=== PATIENT | female | born 1995 | race Asian ===

== ENCOUNTER 2021-04-28 02:30 | Outpatient (CLI) | payer OTHER, SELFPAY ==
[2021-04-28 14:26] LABS: Kit/Specimen SENT
[2021-04-28 14:40] LABS: Abs Immature Grans 0.04 10^3/uL (0.0-0.06); Absolute Basophil Count 0.06 10^3/uL (0.0-0.2); Absolute Eosinophil Count 0.11 10^3/uL (0.0-0.7); Basophils % 0.5; Eosinophils % 0.9; HCT 39.6 % (36.0-46.0); HGB 12.9 g/dL (11.2-15.7); Immature Grans % 0.3; MCH 27.5 pg (27.0-33.0); MCHC 32.6 % (32.0-36.0); MCV 84.4 fL (80-95); MPV 8.7 fL (8.0-11.0); Monocytes % 5.1; Neutrophils % 72.2; Nucleated RBC 0 %; Platelet Count 358 10^3/uL (130-400); RBC 4.69 10^6/uL (3.93-5.22); RDW 12.6 % (11.7-14.6); WBC 11.69 10^3/uL (4.4-10.8)
[2021-04-28 14:41] LABS: Absolute Lymphocyte Count 2.45 10^3/uL (1.2-3.4); Absolute Neutrophil Count 8.44 10^3/uL (1.2-6.7)
[2021-04-28 14:46] LABS: Glucose,1 Hr (Glucola) 131 mg/dL (80-140)
[2021-04-28 16:42] LABS: *AMPHETAMINES SCREEN URINE Negative (Negative); *BARBITURATES SCREEN URINE Negative (Negative); *BENZODIAZEPINES SCREEN URINE Negative (Negative); Cannabinoids THC Negative (Negative); Cocaine Screen,Urine Negative (Negative); METHADONE URINE SCREEN Negative (Negative); OPIATES URINE SCREEN Negative (Negative)
[2021-04-28 16:53] LABS: Tricyclic Antidepressants Negative (Negative)
[2021-04-29 08:54] LABS: Hepatitis B Surface Ag Negative (Negative)
[2021-04-29 09:33] LABS: HIV-1/2 Ag & Ab Screen Negative (Negative)
[2021-04-29 09:47] LABS: Hepatitis C Ab w Rflx HCV PCR Negative (Negative)
[2021-04-29 11:06] LABS: Varicella IgG Antibody Positive (See Note)
[2021-04-29 11:10] LABS: Rubella IgG Ab (UVM) Positive (See Note)
[2021-04-30 00:21] LABS: Syphilis IgG w/Reflex Nonreactive (Nonreactive)
[2021-05-03 18:03] LABS: Result Summary NEGATIVE; Specimen WB Whole Blood
[2021-05-04 23:50] LABS: Specimen WB Whole Blood
[2021-05-06 08:56] LABS: Buprenorphine Negative ng/mL (Cutoff: 5.0); Norbuprenorphine Negative ng/mL (Cutoff: 2.5)
== END 2021-04-28 02:31 | disposition home or self-care (01) ==
PROVIDERS: PCP Internal Medicine; Visit Provider Advanced Practice Midwife
DX: Z34.91 Encounter for supervision of normal pregnancy, unspecified, first trimester (principal)
CPT/HCPCS: 36415; 80307; 81329; 82950; 86787; 86803; 86850; 86900; 86901; 87340; 87389; 87491; 87591; 81220; 85025; 86762; 86780; 87086

== ENCOUNTER 2021-05-26 02:42 | Outpatient (CLI) | payer OTHER, SELFPAY ==
[2021-05-26 12:00] LABS: Kit/Specimen SENT
[2021-05-27 13:46] LABS: Chlamydia Result Negative (Negative); GC Result Negative (Negative)
[2021-05-28 11:18] LABS: AFP 26.3 ng/mL; Calculated age at EDD 28 years; Cigarette smoking status non-Smoker; GA used in risk estimate Scan estimate; IVF Pregnancy Yes; Initial or repeat testing Initial testing; Insulin dependent diabetes No; Maternal Weight 229 lbs; Number of Fetuses 1; Physician Phone Number 802-748-7300; Prev Pregnancy w/NTD No; RECOMMENDED FOLLOW UP None.; Results Summary Normal risk
== END 2021-05-26 02:43 | disposition home or self-care (01) ==
LOC: LBO 02:42
PROVIDERS: PCP Internal Medicine; Visit Provider Advanced Practice Midwife
DX: Z34.91 Encounter for supervision of normal pregnancy, unspecified, first trimester
CPT/HCPCS: 36415; 87491; 87591; 82105

== ENCOUNTER 2021-08-18 03:36 | Outpatient (CLI) | payer OTHER, SELFPAY ==
[2021-08-18 11:06] LABS: HCT 38.4 % (36.0-46.0); HGB 12.7 g/dL (11.2-15.7); MCH 28.3 pg (27.0-33.0); MCHC 33.1 % (32.0-36.0); MCV 86 fL (80-95); MPV 8.4 fL (8.0-11.0); Platelet Count 308 10^3/uL (130-400); RBC 4.48 10^6/uL (3.93-5.22); RDW 12.6 % (11.7-14.6); RDW-SD 39.1 fL; WBC 12.51 10^3/uL (4.4-10.8)
[2021-08-18 11:35] LABS: Glucose,1 Hr (Glucola) 140 mg/dL (80-140)
== END 2021-08-18 03:37 | disposition home or self-care (01) ==
LOC: LBO 03:36
PROVIDERS: Advanced Practice Midwife; PCP Internal Medicine; Visit Provider Advanced Practice Midwife
DX: Z34.93 Encounter for supervision of normal pregnancy, unspecified, third trimester (principal); Z3A.28 28 weeks gestation of pregnancy
CPT/HCPCS: 36415; 82950; 85027

== ENCOUNTER 2021-09-09 02:18 | Outpatient (CLI) | payer OTHER, SELFPAY ==
[2021-09-09 10:21] LABS: Glucose 1 Hour 212 mg/dL
[2021-09-09 12:16] LABS: Glucose 3 Hour 153 mg/dL
--- NOTE | 2021-09-10 12:12 | W.DIABETESNO ---
Date of service: 09/10/21 Time of Service: 12:12 Diabetes Note Reason for Visit: gdm NOTE: Spoke to Dionna on phone today and reviewed nutrition basics for gestational diabetes mangement. Overall, Dionna eats a very healthful diet with no excess sugar. Weight gain appropriate. Started testing her blood sugars this AM, fasting today was 92 mg/dl. Emailed information on glycemic targets and meal plans. Will follow in office when available or per email/phone. Time Spent in Nutritional Counseling and Treatment: 20
== END 2021-09-09 02:19 | disposition home or self-care (01) ==
PROVIDERS: PCP Internal Medicine; Visit Provider Advanced Practice Midwife
DX: O09.813 Supervision of pregnancy resulting from assisted reproductive technology, third trimester (principal); Z3A.31 31 weeks gestation of pregnancy
CPT/HCPCS: 36415; 82951

== ENCOUNTER 2021-10-06 01:52 | Outpatient (CLI) | payer OTHER, SELFPAY ==
--- NOTE | 2021-09-29 10:56 | W.NUTRFU ---
Date of service: 09/29/21 Time of Service: 10:56 Nutrition Note NOTE: Met with Dionna and CHRISTA today for insulin teaching. Provided written material and had Dionna demonstrate injection into teaching model. Will be available prn. Time Spent in Nutritional Counseling and Treatment: 15
--- NOTE | 2021-10-06 07:45 | DI.US_ITS ---
Exam(s) US OB CHANTE WEIGHT EXAM: US OB CHANTE WEIGHT CLINICAL HISTORY: gestational diabetes, O24.419. TECHNIQUE: Transabdominal obstetrical ultrasound performed. COMPARISON: No exams were available for comparison FINDINGS: Transabdominal obstetrical ultrasound performed. FINDINGS: Number of fetuses: One. position: Cephalic. Placental location: There is a grade 1 posterior placenta. No evidence of previa. BIOMETRIC DATA: BPD: 90 mm = 37 weeks 1 day HC: 324 mm = 36 weeks 5 days AC: 320 mm = 35 weeks 6 days FL: 76 mm = 38 weeks 5 days EFW: 3048 grms 77% Composite Age: 37 weeks 1 day EDC: 10/26/2021 Heart Rate: 162BPM Amniotic fluid index: 10 cm. Visually, amount of fluid is within normal limits. IMPRESSION: 1. Single live intrauterine gestation as above. 2. Estimated weight is 3048gms. This is the 77th percentile. 3. Amniotic fluid index is 10 cm. Visually within normal limits. DATA REPOSITORY:
== END 2021-10-06 02:12 ==
PROVIDERS: PCP Internal Medicine; Visit Provider Advanced Practice Midwife
DX: O24.419 Gestational diabetes mellitus in pregnancy, unspecified control (principal); Z3A.38 38 weeks gestation of pregnancy
CPT/HCPCS: 76816

== ENCOUNTER 2021-10-06 15:25 | Outpatient (REF) | payer OTHER, SELFPAY ==
[2021-10-06 17:08] LABS: *AMPHETAMINES SCREEN URINE Negative (Negative); *BARBITURATES SCREEN URINE Negative (Negative); *BENZODIAZEPINES SCREEN URINE Negative (Negative); Cannabinoids THC Negative (Negative); Cocaine Screen,Urine Negative (Negative); METHADONE URINE SCREEN Negative (Negative); OPIATES URINE SCREEN Negative (Negative); Tricyclic Antidepressants Negative (Negative)
[2021-10-12 09:09] LABS: Buprenorphine Negative ng/mL (Cutoff: 5.0)
== END 2021-10-06 15:26 | disposition home or self-care (01) ==
LOC: LBN 15:25
PROVIDERS: PCP Internal Medicine; Visit Provider Obstetrics & Gynecology
DX: Z34.93 Encounter for supervision of normal pregnancy, unspecified, third trimester (principal)
CPT/HCPCS: 80307; 87081

== ENCOUNTER 2021-10-11 11:18 | Outpatient (CLI) | payer OTHER, SELFPAY ==
[2021-10-11 12:35] VITALS: BP 122/76; PULSE 88; RESP 18; TEMP 36.6
[2021-10-11 12:40] VITALS: BP 122/76; PULSE 88; TEMP 36.6
[2021-10-11 13:47] VITALS: BP 122/76; PULSE 88; TEMP 36.6
--- NOTE | 2021-10-11 13:47 | W.OBNST ---
Date of service: 10/11/21 Time of Service: 13:00 NST Evaluation Reason for NST Reasons for Nonstress Test: GDM-INSULIN Gestational Age Gestational Age in Weeks and Days: 36 Weeks and 4Days Test and Monitor Explained Test/Monitor Explained: Test Explained, Monitor Explained and Patient Verbalized Understanding Vital Signs Blood Pressure: 122/76 Pulse: 88 Temperature: 97.9 F NST Information Date on Monitor: 10/11/21 Time on Monitor: 12:34 Date off Monitor: 10/11/21 Time off Monitor: 12:55 Total Time on Monitor: 21 NST Interventions: None NST Evaluation Patient States Movement: Present FHR Baseline: 140 Variability: Moderate 6-25 bpm Accelerations: 15x15 Decelerations: None NST Results: Reactive Note NST Note Note: Reactive NST for A2GDM. Labs drawn for ICP. NST Reviewed and Verified by: Char Cox
[2021-10-11 14:14] LABS: ALT 24 U/L (14-59); AST 19 U/L (15-37); Albumin 2.8 g/dL (3.4-5.0); Alkaline Phosphatase 147 U/L (46-116); Anion Gap 9.2 mmol/L (3-11); BUN 7 mg/dL (7-18); Bilirubin, Total 0.5 mg/dL (0.2-1.0); CO2 22.8 mmol/L (21.0-32.0); CREATININE 0.7 mg/dL (0.55-1.02); Chloride 102 mmol/L (98-107); Glucose 117 mg/dL (74-106); Potassium 3.4 mmol/L (3.5-5.1); Sodium 134 mmol/L (136-145); Total Protein 7.3 g/dL (6.4-8.2)
[2021-10-12 16:39] LABS: Bile Acids, Total 5 mcmol/L (<=10)
== END 2021-10-11 13:45 | disposition home or self-care (01) ==
LOC: BCD 11:20 → OBS 11:32
PROVIDERS: PCP Internal Medicine; Visit Provider Obstetrics & Gynecology
DX: O24.414 Gestational diabetes mellitus in pregnancy, insulin controlled (principal); Z3A.36 36 weeks gestation of pregnancy
CPT/HCPCS: 59025; 80053; 82239

== ENCOUNTER 2021-10-21 07:16 | Outpatient (CLI) | payer OTHER, SELFPAY ==
[2021-10-21 10:02] VITALS: BP 118/73; PULSE 88; TEMP 36.8
[2021-10-21 10:05] VITALS: BP 118/73; PULSE 88
[2021-10-21 10:23] VITALS: BP 118/73; PULSE 88; TEMP 36.8
--- NOTE | 2021-10-21 10:58 | W.OBNST ---
Date of service: 10/21/21 Time of Service: 10:58 NST Evaluation Reason for NST Reasons for Nonstress Test: GDM-INSULIN Gestational Age Gestational Age in Weeks and Days: 38 Weeks and 0Days Test and Monitor Explained Test/Monitor Explained: Test Explained, Monitor Explained and Patient Verbalized Understanding Vital Signs Blood Pressure: 118/73 Pulse: 88 Temperature: 98.2 F NST Information Date on Monitor: 10/21/21 Time on Monitor: 10:01 Date off Monitor: 10/21/21 Time off Monitor: 10:21 Total Time on Monitor: 20 NST Interventions: None Contraction Frequency: 0 NST Evaluation Patient States Movement: Present FHR Baseline: 140 Variability: Moderate 6-25 bpm Accelerations: 15x15 Decelerations: None NST Results: Reactive Note NST Note Note: NST for gestational diabetes.see office note today. RTO in 1 weeks for NST with IOL at 39 weeks. NST Reviewed and Verified by: Lakeisha Ch
[2021-10-21 10:59] VITALS: BP 118/73; PULSE 88; TEMP 36.8
== END 2021-10-21 10:41 | disposition home or self-care (01) ==
LOC: BCD 07:17 → OBS 08:19
PROVIDERS: PCP Internal Medicine; Visit Provider Obstetrics & Gynecology
DX: O24.415 Gestational diabetes mellitus in pregnancy, controlled by oral hypoglycemic drugs (principal); Z3A.38 38 weeks gestation of pregnancy
CPT/HCPCS: 59025

== ENCOUNTER 2021-10-27 07:11 | Outpatient (CLI) | payer OTHER, SELFPAY ==
[2021-10-27 09:50] VITALS: BP 119/69; PULSE 74; TEMP 36.4
[2021-10-27 10:33] VITALS: BP 119/69; PULSE 74
--- NOTE | 2021-10-27 10:35 | W.OBNST ---
Date of service: 10/27/21 Time of Service: 10:36 NST Evaluation Reason for NST Reasons for Nonstress Test: GDM- PO MEDICATION Gestational Age Gestational Age in Weeks and Days: 38 Weeks and 6Days Test and Monitor Explained Test/Monitor Explained: Test Explained, Monitor Explained and Patient Verbalized Understanding Vital Signs Blood Pressure: 119/69 Pulse: 74 Temperature: 97.5 F Urine Results Urine Protein: Negative Urine Ketones: Positive Urine Glucose: Negative Urine Blood: Negative NST Information Date on Monitor: 10/27/21 Time on Monitor: 09:53 Date off Monitor: 10/27/21 Time off Monitor: 10:15 Total Time on Monitor: 22 NST Interventions: None Contraction Frequency: None NST Evaluation Patient States Movement: Present FHR Baseline: 135 Variability: Moderate 6-25 bpm Accelerations: 15x15 Decelerations: None NST Results: Reactive Note NST Note Note: SVE: 1/70% posterior, medium in consistency, vtx OP and -4 Kidd score of 4 RTO in the morning for IOL via cervical ripening d/t GDM, on metformin NST Reviewed and Verified by: Alia Arrington
[2021-10-27 10:37] VITALS: BP 119/69; PULSE 74; TEMP 36.4
== END 2021-10-27 10:40 | disposition home or self-care (01) ==
LOC: BCD 07:11 → OBS 09:35
PROVIDERS: PCP Internal Medicine; Visit Provider Advanced Practice Midwife
DX: O24.415 Gestational diabetes mellitus in pregnancy, controlled by oral hypoglycemic drugs (principal); Z3A.38 38 weeks gestation of pregnancy
CPT/HCPCS: 59025

== ENCOUNTER 2021-10-28 07:37 | Inpatient (IN) | payer OTHER, SELFPAY ==
[2021-10-28] VITALS (10 sets, daily range): BP systolic 113–125; BP diastolic 70–86; PULSE 72–92; RESP 12–20; TEMP 36.7–36.8
--- NOTE | 2021-10-28 08:54 | W.PM.OBHPL1 ---
Date of service: 10/28/21 Time of Service: 08:54 Assessment and Plan Assessment and plan (1) Gestational diabetes mellitus (GDM) requiring insulin: Status: Acute Assessment and plan: A: 26 yo G1 @ 39 wks; IVF conception GDM requiring metformin for euglycemia GBS neg, Rh+, Rubella Immune, BMI 39 Category 1 tracing Increased risk SD & PPH d/t primipara with GDM and IOL Montiel score of 4 P: Admit to BC, begin cervical ripening procedures Labs ordered, misoprostel 50 mcg q4H per protocol Pt in agreement with plan of care, alternatives, R&B discussed, questions addressed Dr. Kidd consulting prn, anticipate (2) Encounter for induction of labor: Status: Acute OB-HPI Labor/Delivery History of Present Illness Reason for Visit: GDM Requiring Medication, 39 Wks Chief Complaint: Scheduled Induction of Labor Indication for Induction: Gestational Diabetes (requiring metformin). URBAN Calculator Estimated Delivery Date Method Current WG Current Estimate 11/04/21 Conception 39w 0d Other Estimates 11/06/21 Ultrasound #1 38w 5d 11/05/21 Ultrasound #2 38w 6d History of Present Expected Delivery Route/Plan - MD PAULINE managing glucose meds FOB/ - Shalom Turk (first child together) BB, denise bustamante, Jayant Turk GDM diet control @ 30 wks; began metformin @ 35 wks Likely IOL 39-40 wks, planning epidural Specific Issues/Plan 1. IVF , 02/16 embryo transfer- Level 2 @ [facility] [place] scheduled 06/16/21 1a. US normal, placenta post. 2. BMI 36 - early OKQ=275 2a. 1-hr GTT 140, 3-hr GTT -93, 212, 157, 153=GDM, Testing QID, referral to [facility] nutrition. 2b. MD consult 09/29/2021. Add insulin, 4 U NPH in the evening - unable to obtain yet 10/06. Will start Metformin instead. -growth sono 10/06/21: efw 77%ile, normal CHANTE @ 10 3. Panorama, CF/SMA negative, desires AFP 3a. Panorama sample was insufficient x2, will send copies to [facility] for 06/16 consult 3b. M consult did not mention Panorama results, US is normal, Dionna declines a third blood draw or genetic counseling with [facility]. 4. Increased risk of preeclampsia (Nullip & BMI) - ASA recommended 81mg/162mg daily 5. Pt and are both COVID vaccinated 6. Itchy hands/feet; CMP/bile acids pending -Bile acids 5 Informed Consent Informed Consent: Induction of Labor (via cervical ripening) and Risk,Benefits,Alternatives Discussed Review of Systems Narrative: ROS completed, noncontributory other than HPI PFSH All Active Problems (Updated 10/28/21 @ 09:02 by Alia Arrington) Encounter for induction of labor (Acute) Gestational diabetes mellitus (GDM) requiring insulin (Acute) Class 2 obesity with body mass index (BMI) of 37.0 to 37.9 in adult (Acute) conceived through in vitro fertilization (Acute) (Acute) Medical History Frequent UTI Gestational diabetes H/O infertility Migraines Surgical History H/O unilateral salpingectomy Left tube in Summer 2020. Suspect hx infection. [facility] Family History Father Kidney failure kidney transplant Paternal Cousin Diabetes Brother Asthma Brother Asthma Social History Smoking/Tobacco Use Status: Never Smoking risk assessment performed?: Yes Alcohol Intake: never Drug use: Never Substance use type: does not use Female Reproductive History Menstrual Age of Menarche: 10 History History 1 Para 0 Hx # Term Pregnancies 0 Multiple births 0 Hx # Pregnancies 0 Ectopic pregnancies 0 AB induced 0 Hx Number of Living Children 0 AB spontaneous 0 Meds Allergies and Home Medications Allergies Allergy/AdvReac Type Severity Reaction Status Date / Time Sulfa (Sulfonamide Allergy Intermediate Skin Rash Verified 10/28/21 08:56 Antibiotics) nickel Allergy Mild Verified 10/28/21 08:56 Home Medications Medication Instructions Recorded Confirmed Type pantoprazole 40 mg tablet,delayed 40 mg PO DAILY #30 tabs 09/01/21 10/28/21 Rx release (Protonix) blood sugar diagnostic (FreeStyle #100 ea 09/09/21 10/21/21 Rx Lite Strips) blood-glucose meter (FreeStyle #1 ea 09/09/21 10/21/21 Rx Lite Meter kit) lancets 28 gauge (FreeStyle #100 ea 09/09/21 10/21/21 Rx Lancets) metformin 500 mg tablet 500 mg PO BID #60 tabs 10/06/21 10/28/21 Rx aspirin 81 mg tablet,delayed See Rx Instructions .Route .COMPLEX 10/28/21 10/28/21 History release (Adult Low Dose Aspirin) vitamin with calcium 1 tab PO DAILY 10/28/21 10/28/21 History no.72-iron 27 mg-folic acid 1 mg tablet (WesTab Plus) Exam Physical Exam Vital signs: Temp Pulse Resp BP 98.2 F 83 12 124/81 10/28/21 08:37 10/28/21 08:40 10/28/21 08:37 10/28/21 08:40 Vital Signs Reviewed: Yes Constitutional Constitutional: no acute distress, obese and cooperative Detailed Labor and Delivery Exam Dilation: 1 Effacement (%): 70 station: -4 Position: LOP Cervix position: posterior Consistency: medium MONTIEL Score(Cervical Ripeness Score): 4 Amniotic Membrane Status: Intact Monitor Mode: External Contraction Frequency(min): none Fetus A Heart Rate Baseline: 140 Monitor Accelerations: 15 X 15 Monitor Decelerations: None Variability: Moderate (6-25 BPM) Categories: Category I Est. Weight: 7 lb 0.877 oz Est. Weight: 3200 gms HEENT Exam HEENT Exam: Normal Neck Exam Neck Exam: Normal Chest/Brest/Axilla Exam Chest Exam: Normal Breast Exam Breast Exam: Normal Respiratory Exam Respiratory Exam: Normal Cardiovascular Exam Cardiovascular Exam: Normal Abdominal Exam Abdominal Exam: Normal (Gravid, nontender) Rectal Exam Rectal Exam: Normal Exam Exam: Normal Extremities Exam Extremities Exam: Normal Back/Spine/Pelvis Exam Back Exam: Normal Pelvis Adequate: Yes Skin Exam Skin Exam: Normal Neurological Exam Neurological Exam: Normal Psychiatric Exam Psychiatric Exam: Normal Results Results Group Beta Strep: Negative Blood Type: O+ Rubella Status: Immune Varicella Immunity: Immune Risk Assessment Risk for Shoulder Dystocia Historical/Initial OB: POSITIVE FOR: Pre- BMI>30; NEGATIVE FOR: Pelvic Abnormality, Previous Shoulder Dystocia or Previous Macrosomia 40 Weeks: NEGATIVE FOR: EFW> 4500 gms, Maternal Weight Gain >40lb or Post Dates Increased Risk?: Yes Counseling: increased risk for SD due to primiparous status and GDM Delivery Plan @ 36wks: IOL @ 39 wks, sugars controlled with metformin, Risk for Pre-Eclampsia Daily Dose ASA Indicated: Yes Date Initiated/Initials: 04/28/21. Indicated. Yes, if one or more: NEGATIVE FOR: Hx Pre-E/Gest HTN, Chronic HTN, Multiple Gestation, Pre-gestational DM, Renal Disease, Systemic Lupus or APA Syndrome Yes, if 2 or more: POSITIVE FOR: Nulliparity and BMI>30; NEGATIVE FOR: Age>= 35 yrs, >10yr btwn pregnancies, ethinicty, Mother/Sister w/ Pre-E or Previous IUGR Risk for Post- Hemorrhage Initial: NEGATIVE FOR: Multiple Gestation, Previous PPH, Known Clotting Deficiency, Grand Multiparity or Anticoagulation At Risk?: Yes (due IOL and cervical ripening) Counseled re: Active Management: Yes Risks Reviewed Risks Reviewed Upon Admission: Yes
[2021-10-28 09:14] LABS: Source Nasal/Nares
[2021-10-28 09:19] LABS: HCT 38.3 % (36.0-46.0); HGB 12.8 g/dL (11.2-15.7); MCH 27.4 pg (27.0-33.0); MCHC 33.4 % (32.0-36.0); MCV 82 fL (80-95); MPV 9.2 fL (8.0-11.0); Platelet Count 313 10^3/uL (130-400); RBC 4.67 10^6/uL (3.93-5.22); RDW 13.5 % (11.7-14.6); RDW-SD 39.8 fL
[2021-10-28] MEDS: miSOPROStol 50 MCG TAB PO ×4 (09:28→21:59)
[2021-10-28] MEDS: metFORMIN 500 MG TAB PO ×2 (09:28→18:11)
[2021-10-28] MEDS: Pantoprazole 40 MG TABCR PO (09:30)
[2021-10-28 10:05] LABS: COVID-19 PCR Negative (Negative)
--- NOTE | 2021-10-28 17:34 | W.PM.OBNL1 ---
Date of service: 10/28/21 Time of Service: 17:34 Informed Consent Informed Consent: Induction of Labor (via cervical ripening) and Risk,Benefits,Alternatives Discussed Pelvic Exam Dilation: 1.5 Effacement (%): 70 station: -3 Position: LOP Cervix Position: mid Consistency: medium BISHOPS Score(Cervical Ripeness Score): 5 Contractions Monitor Mode: External Contraction Frequency(min): 2-3 in 10 minutes Intensity: Mild Fetus A Monitor: External (US) Heart Rate Baseline: 140 Presentation: Cephalic Variability: Moderate (6-25 BPM) Categories: Category I Accelerations: 15 X 15 Decelerations: None Amniotic Membrane Status: Intact Assessment and Plan Assessment and plan (1) Encounter for induction of labor: Status: Acute Assessment and plan: A: IOL for GDM via cervical ripening 2 doses of miso given thus far cat 1 FHT; pt tolerating well P: Metformin 500 BID QID fingerstick glucose levels ordered Continue misoprostel 50 mcg PO Q4H Objective Temp Pulse Resp BP 98.1 F 85 20 114/73 10/28/21 15:33 10/28/21 17:34 10/28/21 15:33 10/28/21 17:34 Laboratory Results WBC 8.10 10^3/uL (4.4-10.8) 10/28/21 09:08 RBC 4.67 10^6/uL (3.93-5.22) 10/28/21 09:08 Hgb 12.8 g/dL (11.2-15.7) 10/28/21 09:08 Hct 38.3 % (36.0-46.0) 10/28/21 09:08 MCV 82 fL (80-95) 10/28/21 09:08 MCH 27.4 pg (27.0-33.0) 10/28/21 09:08 MCHC 33.4 % (32.0-36.0) 10/28/21 09:08 RDW 13.5 % (11.7-14.6) 10/28/21 09:08 Plt Count 313 10^3/uL (130-400) 10/28/21 09:08 MPV 9.2 fL (8.0-11.0) 10/28/21 09:08 COVID-19 Source Nasal/Nares 10/28/21 09:05 SARS-CoV-2 (PCR) Negative (Negative) 10/28/21 09:05 Patient ABO/Rh O Positive 10/28/21 09:08 Antibody Screen NEGATIVE 10/28/21 09:08 Vital Signs Reviewed: Yes Objective Narrative Objective Narrative: Normotensive, afebrile Cat 1 FHT Pt relaxed and restful, FOB bedside all day Is pleased with the progress in her cervical change Kidd score has advanced to 5-6 Subjective Interval history since last seen: Throughtout the day pt has been generally comfortable, has reported increases in tightenings and pelvic pressure, tolerating PO intake well, Results Hemoglobin/Hematocrit: Hgb 12.8 g/dL (11.2-15.7) 10/28/21 09:08 Hct 38.3 % (36.0-46.0) 10/28/21 09:08
[2021-10-29] VITALS (248 sets, daily range): BP systolic 112–125; BP diastolic 70–79; PULSE 0–107; RESP 14–20; TEMP 32.7–37.3
--- NOTE | 2021-10-29 08:19 | W.PM.OBNL1 ---
Date of service: 10/29/21 Time of Service: 08: Informed Consent Informed Consent: Induction of Labor (via cervical ripening) and Risk,Benefits,Alternatives Discussed Pelvic Exam Dilation: 1.5 Effacement (%): 70 station: -3 Position: LOP Cervix Position: anterior Consistency: soft BISHOPS Score(Cervical Ripeness Score): 6 Vaginal Exam Presentation: Cephalic Contractions Monitor Mode: External Contraction Frequency(min): 2-3 in 10 minutes Intensity: Mild Fetus A Monitor: External (US) (novi) Heart Rate Baseline: 135 Presentation: Cephalic Variability: Moderate (6-25 BPM) Categories: Category I Accelerations: 15 X 15 Decelerations: None Amniotic Membrane Status: Intact Assessment and Plan Assessment and plan (1) Encounter for induction of labor: Status: Acute Assessment and plan: A: HD#2 IOL for GDM requiring metformin Primipara, GBS neg, BMI 39 Kidd score more favorable at 6-7 P: Plan to insert cervical balloon Initiate IV access and begin pitocin infusion Comfort measures, nitrous, epidural as pt requests Stuart applied for continuous EFM Dr. Cox consulting prn Anticipate Objective Vital Signs Reviewed: Yes Objective Narrative Objective Narrative: Pt slept well last night, tolerating oral intake well Completed 4 doses of miso yesterday for 200 mcg total Normotensive, afebrile, fasting glucose today 86 Category 1 tracing, intact membranes Options for continuing induction reviewed w/pt & Questions addressed, pt expresses no concerns at this time Kidd score has advanced to 6-7 per exam this morning Subjective Interval history since last seen: Mild contractions through the night though pt was able to sleep, feeling well this morning, good spirits.
[2021-10-29] MEDS: Lactated Ringers 1,000 ML 125 ML IV ×2 (08:45→16:43)
[2021-10-29] MEDS: Oxytocin/Normal Saline 30 UNIT/500 ML BAG 2 UNITS IV (09:33)
[2021-10-29] MEDS: Pantoprazole 40 MG TABCR PO (11:10)
[2021-10-29] MEDS: metFORMIN 500 MG TAB PO ×2 (11:10→18:50)
--- NOTE | 2021-10-29 13:55 | W.PM.OBNL1 ---
Date of service: 10/29/21 Time of Service: 13:30 Informed Consent Informed Consent: Induction of Labor (Pitocin infusion) and Risk,Benefits,Alternatives Discussed Pelvic Exam Dilation: 4 Effacement (%): 80 station: -3 Cervix Position: mid Consistency: soft BISHOPS Score(Cervical Ripeness Score): 8 Vaginal Exam Presentation: Cephalic Contractions Monitor Mode: External Contraction Frequency(min): q2-4 Contraction Duration(sec): 50-70 Intensity: Mild/Moderate Fetus A Heart Rate Baseline: 140 Variability: Moderate (6-25 BPM) Categories: Category I Accelerations: 15 X 15 Decelerations: None Amniotic Membrane Status: Intact Assessment and Plan Assessment and plan (1) Encounter for induction of labor: Status: Acute Assessment and plan: A: IOL for GDM, cervical ripening complete Pitocin infusion now at 8 MU/min Cvx 4/80% soft, vtx -3; moeller score of 8 Serrano bulb extruding from cervical os into vaginal vault, removed Pt mildly uncomfortable, coping well P: Reviewed with pt options for pain management Pt declines medication at this time Will continue pitocin, consider AROM later this afternoon Dr. Kidd consulting prn Anticipate Subjective Interval history since last seen: Contractions are getting frequent and uncomfortable, states she feels she is managing ok for now.
[2021-10-30] VITALS (356 sets, daily range): BP systolic 99–125; BP diastolic 58–84; PULSE 0–179; RESP 16–20; TEMP 36.4–36.8; O2SAT 98–100; BMI 39.2
--- NOTE | 2021-10-30 00:33 | W.PM.OBNL1 ---
Date of service: 10/30/21 Time of Service: 00:33 Informed Consent Informed Consent: Induction of Labor (Pitocin infusion) and Risk,Benefits,Alternatives Discussed Pelvic Exam Dilation: 3 Effacement (%): 70 station: -2 Cervix Position: mid Consistency: medium Vaginal Exam Presentation: Vertex Contractions Monitor Mode: External Contraction Frequency(min): every 2 minutes Contraction Duration(sec): 50 Intensity: Mild/Moderate Fetus A Monitor: External (US) Heart Rate Baseline: 140 Variability: Moderate (6-25 BPM) Categories: Category I FHR Rhythm: Regular Accelerations: 15 X 15 Decelerations: None Amniotic Membrane Status: Intact Assessment and Plan Assessment and plan (1) Gestational diabetes mellitus (GDM) controlled on oral hypoglycemic drug: Status: Acute Assessment and plan: continue blood sugar testing fasting and post meal. (2) Encounter for induction of labor: Status: Acute Assessment and plan: Due to limited progress and maternal fatigue, Dionna was given the option of discontinuing the pitocin for rest or continuing through the night. Dionna chose to stop the pitocin. She was offered medication to sleep which she declines at this time. Rest was encouraged and will re-assess after she awakes and plan to resume pitocin infusion in the morning. Objective Temp Pulse Resp BP 98.2 F 85 20 114/75 10/29/21 19:01 10/30/21 00:30 10/29/21 19:01 10/29/21 22:19 Laboratory Results WBC 8.10 10^3/uL (4.4-10.8) 10/28/21 09:08 RBC 4.67 10^6/uL (3.93-5.22) 10/28/21 09:08 Hgb 12.8 g/dL (11.2-15.7) 10/28/21 09:08 Hct 38.3 % (36.0-46.0) 10/28/21 09:08 MCV 82 fL (80-95) 10/28/21 09:08 MCH 27.4 pg (27.0-33.0) 10/28/21 09:08 MCHC 33.4 % (32.0-36.0) 10/28/21 09:08 RDW 13.5 % (11.7-14.6) 10/28/21 09:08 Plt Count 313 10^3/uL (130-400) 10/28/21 09:08 MPV 9.2 fL (8.0-11.0) 10/28/21 09:08 COVID-19 Source Nasal/Nares 10/28/21 09:05 SARS-CoV-2 (PCR) Negative (Negative) 10/28/21 09:05 Patient ABO/Rh O Positive 10/28/21 09:08 Antibody Screen NEGATIVE 10/28/21 09:08 Subjective Interval history since last seen: Dionna was given metformin 500 mg BID today. Blood sugar reading have been WNL today with most recent reading 116 after dinner. Dionna reports that she has been dozing between contractions. She reports that contractions are not very painful. Pitocin has been 20 mu /min since 2129. Results Hemoglobin/Hematocrit: Hgb 12.8 g/dL (11.2-15.7) 10/28/21 09:08 Hct 38.3 % (36.0-46.0) 10/28/21 09:08
[2021-10-30] MEDS: metFORMIN 500 MG TAB PO (07:52)
--- NOTE | 2021-10-30 09:06 | W.PM.OBNL1 ---
Date of service: 10/30/21 Time of Service: 09:06 Informed Consent Informed Consent: Induction of Labor (Pitocin infusion) and Risk,Benefits,Alternatives Discussed Pelvic Exam Dilation: 3 Effacement (%): 70 station: -2 Cervix Position: mid Consistency: medium Contractions Monitor Mode: External Contraction Frequency(min): every 3 Contraction Duration(sec): 50 Intensity: Mild Fetus A Monitor: External (US) Heart Rate Baseline: 140 Presentation: Vertex Variability: Moderate (6-25 BPM) Categories: Category I FHR Rhythm: Regular Characteristics: Normal Accelerations: 15 X 15 Decelerations: Variable Recurrence: Periodic Amniotic Membrane Status: Ruptured Rupture Method: Artifical Amniotic Fluid: Clear Assessment and Plan Assessment and plan (1) Encounter for induction of labor: Status: Acute Assessment and plan: Continue to assess labor pattern. Will restart pitocin per protocol. SVE when appropriate. Plan discussed with Dr Cox via voicemail. (2) Gestational diabetes mellitus (GDM) controlled on oral hypoglycemic drug: Status: Acute Assessment and plan: fasting blood sugar 71 this morning. Will continue to assess, Objective Temp Pulse Resp BP 98.2 F 93 H 20 118/68 10/29/21 19:01 10/30/21 09:06 10/29/21 19:01 10/30/21 08:23 Laboratory Results WBC 8.10 10^3/uL (4.4-10.8) 10/28/21 09:08 RBC 4.67 10^6/uL (3.93-5.22) 10/28/21 09:08 Hgb 12.8 g/dL (11.2-15.7) 10/28/21 09:08 Hct 38.3 % (36.0-46.0) 10/28/21 09:08 MCV 82 fL (80-95) 10/28/21 09:08 MCH 27.4 pg (27.0-33.0) 10/28/21 09:08 MCHC 33.4 % (32.0-36.0) 10/28/21 09:08 RDW 13.5 % (11.7-14.6) 10/28/21 09:08 Plt Count 313 10^3/uL (130-400) 10/28/21 09:08 MPV 9.2 fL (8.0-11.0) 10/28/21 09:08 COVID-19 Source Nasal/Nares 10/28/21 09:05 SARS-CoV-2 (PCR) Negative (Negative) 10/28/21 09:05 Patient ABO/Rh O Positive 10/28/21 09:08 Antibody Screen NEGATIVE 10/28/21 09:08 Subjective Interval history since last seen: Dionna reports that she slept well last nigh and was not awakened by contractions. Results Hemoglobin/Hematocrit: Hgb 12.8 g/dL (11.2-15.7) 10/28/21 09:08 Hct 38.3 % (36.0-46.0) 10/28/21 09:08
[2021-10-30] MEDS: Normal Saline Flush 10 ML SYR IVP ×2 (09:39→09:41)
[2021-10-30] MEDS: Oxytocin/Normal Saline 30 UNIT/500 ML BAG 2 UNITS IV (09:41)
[2021-10-30] MEDS: Lactated Ringers 1,000 ML 125 ML IV ×2 (09:41→17:46)
--- NOTE | 2021-10-30 17:12 | PGE_ITS ---
Date of service: 10/30/21 Time of Service: 17:13 Informed Consent Informed Consent: Induction of Labor (Pitocin infusion) and Risk,Benefits,Alternatives Discussed Pelvic Exam Dilation: 4 station: -1 Cervix Position: posterior Consistency: soft Vaginal Exam Presentation: Vertex Contractions Monitor Mode: External Contraction Frequency(min): every 3-4 Contraction Duration(sec): 60 Intensity: Moderate/Strong Fetus A Monitor: External (US) Heart Rate Baseline: 140 Presentation: Vertex Variability: Moderate (6-25 BPM) Categories: Category I FHR Rhythm: Regular Characteristics: Normal Accelerations: 15 X 15 Decelerations: None Amniotic Membrane Status: Ruptured Amniotic Fluid: Clear Assessment and Plan Assessment and plan (1) Encounter for induction of labor: Status: Acute Assessment and plan: Casey PEDERSON paged for epidural. Anticipate . Objective Temp Pulse Resp BP 98.1 F 87 16 125/78 10/30/21 16:32 10/30/21 17:09 10/30/21 16:32 10/30/21 16:32 Laboratory Results WBC 8.10 10^3/uL (4.4-10.8) 10/28/21 09:08 RBC 4.67 10^6/uL (3.93-5.22) 10/28/21 09:08 Hgb 12.8 g/dL (11.2-15.7) 10/28/21 09:08 Hct 38.3 % (36.0-46.0) 10/28/21 09:08 MCV 82 fL (80-95) 10/28/21 09:08 MCH 27.4 pg (27.0-33.0) 10/28/21 09:08 MCHC 33.4 % (32.0-36.0) 10/28/21 09:08 RDW 13.5 % (11.7-14.6) 10/28/21 09:08 Plt Count 313 10^3/uL (130-400) 10/28/21 09:08 MPV 9.2 fL (8.0-11.0) 10/28/21 09:08 COVID-19 Source Nasal/Nares 10/28/21 09:05 SARS-CoV-2 (PCR) Negative (Negative) 10/28/21 09:05 Patient ABO/Rh O Positive 10/28/21 09:08 Antibody Screen NEGATIVE 10/28/21 09:08 Subjective Interval history since last seen: Pitocin is at 18 mu/ min. Dionna is having difficulty coping with contra ctions. She tried nitrous oxide briefly but did not get relief. She now requests an epidural. Results Hemoglobin/Hematocrit: Hgb 12.8 g/dL (11.2-15.7) 10/28/21 09:08 Hct 38.3 % (36.0-46.0) 10/28/21 09:08
--- NOTE | 2021-10-30 17:28 | W.ANESPRE ---
General Info Date of Service Date Performed: 10/30/21 Height: 5 ft 6 in Weight: 110.223 kg Body Mass Index (BMI): 39.2 Meds Allergies and Home Medications Allergies Allergy/AdvReac Type Severity Reaction Status Date / Time Sulfa (Sulfonamide Allergy Intermediate Skin Rash Verified 10/28/21 08:56 Antibiotics) nickel Allergy Mild Verified 10/28/21 08:56 Home Medication Medication Instructions Recorded pantoprazole 40 mg tablet,delayed 40 mg PO DAILY #30 tabs 09/01/21 release (Protonix) blood sugar diagnostic (FreeStyle #100 ea 09/09/21 Lite Strips) blood-glucose meter (FreeStyle #1 ea 09/09/21 Lite Meter kit) lancets 28 gauge (FreeStyle #100 ea 09/09/21 Lancets) metformin 500 mg tablet 500 mg PO BID #60 tabs 10/06/21 aspirin 81 mg tablet,delayed See Rx Instructions .Route .COMPLEX 10/28/21 release (Adult Low Dose Aspirin) vitamin with calcium 1 tab PO DAILY 10/28/21 no.72-iron 27 mg-folic acid 1 mg tablet (WesTab Plus) Current Visit Medications: Current Medications Generic Name Dose Route Start Last Admin Trade Name Freq PRN Reason Stop Dose Admin Sodium Chloride 500 mls @ 0 mls/hr 10/29/21 08:30 Saline 500ml Bag IV PRN PRN As Directed Oxytocin/Sodium Chloride 30 unit in 500 mls @ 2 mls/hr 10/29/21 08:45 10/30/21 14:33 Pitocin/Normal Saline IV 18 milliunits/min INFUSION ERICH 18 mls/hr Titration Protocol 2 MILLIUNITS/MIN Ringer's Solution 1,000 mls @ 125 mls/hr 10/29/21 09:00 10/30/21 09:41 IV 125 mls/hr INFUSION ERICH Administration IV Miscellaneous Supplies 1 each 10/29/21 08:30 Iv Access IV DIRECTED ERICH Pantoprazole Sodium 40 mg 10/28/21 08:30 10/30/21 08:13 Pantoprazole 40 Mg Tabcr PO Not Given DAILY ERICH Sodium Chloride 0 ml 10/29/21 08:30 10/30/21 09:41 Normal Saline Flush 10 Ml Syr IVP 10 ml PRN PRN Administration Sodium Chloride 0 ml 10/29/21 08:30 Normal Saline Flush 10 Ml Syr IVP PRN PRN Terbutaline Sulfate 0.25 mg 10/28/21 07:42 Terbutaline 1 Mg/Ml Vial SC PRN PRN PFSH Active Problems Active Problems: Problem Status Onset Code Gestational diabetes mellitus (GDM) controlled on oral hypoglycemic drug O24.415 Encounter for induction of labor Z34.90 Class 2 obesity with body mass index (BMI) of 37.0 to 37.9 in adult E66.9, Z68.37 conceived through in vitro fertilization O09.819 Z34.90 Medical History Medical History (Updated 10/30/21 @ 11:07 by Alia Arrington) Frequent UTI Gestational diabetes Gestational diabetes mellitus (GDM) requiring insulin H/O infertility Migraines Surgical History Surgical History H/O unilateral salpingectomy Left tube in Summer 2020. Suspect hx infection. At [facility] Tobacco Smoking/Tobacco Use Status: Never Alcohol Alcohol Intake: never Substance Use Substance use: Never Substance use type: does not use Prental History History 1 Para 0 Hx # Term Pregnancies 0 Multiple births 0 Hx # Pregnancies 0 Ectopic pregnancies 0 AB induced 0 Hx Number of Living Children 0 AB spontaneous 0 Vital Signs and Lab Results Vital Signs Most Recent Vital Signs in EMR: Most Recent Vital Signs Temp Pulse Resp BP 36.7 C 82 16 125/78 10/30/21 16:32 10/30/21 17:25 10/30/21 16:32 10/30/21 16:32 Point of Care Results Point of Care Results: Finger Stick Blood Glucose 75 10/30/21 13:33 Lab Results Result Diagrams: 10/28/21 09:08 Blood Type / Crossmatch: Patient ABO/Rh O Positive 10/28/21 Antibody Screen NEGATIVE 10/28/21 Complete Blood Count: White Blood Count 8.10 10^3/uL (4.4-10.8) 10/28/21 09:08 Red Blood Count 4.67 10^6/uL (3.93-5.22) 10/28/21 09:08 Hemoglobin 12.8 g/dL (11.2-15.7) 10/28/21 09:08 Hematocrit 38.3 % (36.0-46.0) 10/28/21 09:08 Platelet Count 313 10^3/uL (130-400) 10/28/21 09:08 Complete Metabolic Panel: Sodium Level 134 mmol/L (136-145) L 10/11/21 13:35 Potassium Level 3.4 mmol/L (3.5-5.1) L 10/11/21 13:35 Chloride Level 102 mmol/L (98-107) 10/11/21 13:35 Carbon Dioxide Level 22.8 mmol/L (21.0-32.0) 10/11/21 13:35 Blood Urea Nitrogen 7 mg/dL (7-18) 10/11/21 13:35 Creatinine 0.7 mg/dL (0.55-1.02) 10/11/21 13:35 Estimated GFR/1.73 m2 >= 60.00 (mL/min/1.73m2) 10/11/21 13:35 Calcium Level 9.0 mg/dL (8.5-10.1) 10/11/21 13:35 Albumin 2.8 g/dL (3.4-5.0) L 10/11/21 13:35 Glucose Level 117 mg/dL (74-106) H 10/11/21 13:35 Liver Function Panel: Alanine Aminotransferase (ALT/SGPT) 24 U/L (14-59) 10/11/21 13:35 Aspartate Amino Transf (AST/SGOT) 19 U/L (15-37) 10/11/21 13:35 Coagulation Panel: No Data to Display Cardiac Panel: No Data to Display Arterial Blood Gas: No Data to Display Venous Blood Gas: No Data to Display Pancreas Panel: No Data to Display Thyroid Panel: No Data to Display Infectious Disease: Coronavirus (COVID-19)(PCR) Negative (Negative) 10/28/21 09:05 Coronavirus 2019 Source Nasal/Nares 10/28/21 09:05 Blood Cultures: No Data to Display Toxicology Panel: Urine Amphetamines Screen Negative (Negative) 10/06/21 15:37 Urine Benzodiazepines Screen Negative (Negative) 10/06/21 15:37 Urine Barbiturates Screen Negative (Negative) 10/06/21 15:37 Urine Cocaine Screen Negative (Negative) 10/06/21 15:37 Urine Methadone Screen Negative (Negative) 10/06/21 15:37 Urine Opiates Screen Negative (Negative) 10/06/21 15:37 Ur Tricyclic Antidepressants Screen Negative (Negative) 10/06/21 15:37 Ur Tetrahydrocannabinol (THC) Scrn Negative (Negative) 10/06/21 15:37 Panel: No Data to Display Anesthesia Assessment and Plan Anesthesia History Personal History: No History of Anesthesia Complications Family History: No Family History of Anesthesia Complications Exercise Tolerance Exercise Tolerance: Metabolic Equivalents>4 Cardiac & Pulmonary Exam Cardiac Exam: Normal S1/S2 Heart Sounds Pulmonary Exam: Clear Bilateral Breath Sounds Implantable Cardiac Device Does patient have a Pacemaker or an ICD?: No Airway Exam Known Difficult Airway: No Mallampati Class: 3 Mouth Opening: Normal (> 3cm) Thyromental Distance: Greater than 3 cm Neck Range of Motion: Full ROM Neck Circumference: Normal Teeth Condition: Normal Dentition ASA Classification ASA Score: ASA 2 Emergency Case?: No NPO Status NPO Status: Full Stomach Status Status: Other Anesthesia Plan Resuscitation Status: Full Code Anesthesia Technique: Epidural Anesthesia Airway Planned: Natural Airway Pain Management: Epidural Monitors Used: Standard Monitors Preoperative Comments:: 26 yo G1 female here for induction of labor requesting epidural. Currently 4 cm. Sig PMHx: GD (metformin), never smoker. Plt 313
[2021-10-30] MEDS: FentaNYL/ROPIvacaine 2 mcg/ml and 0.1% 200 ML CADD Cassette EP (18:10)
--- NOTE | 2021-10-30 18:14 | W.ANESNEU ---
Epidural/Spinal Catheter Date Performed: 10/30/21 Procedure Start: 17:55 Procedure Stop: 16:04 Requesting Provider: Lakeisha Ch Procedure Location: Obstetrics Reason Performed: Labor Epidural Standard Monitors Applied: ECG, Blood Pressure and SpO2 Patient Position: Sitting Sedation Given (Indicate Dose Given): No Sedation given Patient Mental Status: Awake Sterility: Hand Hygiene, Surgical Cap and Surgical Mask Procedure Location: L2-L3 Interspace Epidural Needle: Tuohy 18 Gauge Needle Length: 3.5 Inch Needle Approach: Midline Epidural Procedure: Skin Prepped, Sterile Drape Placed, 1% Lidocaine to skin and subcutaneous tissue with 25G needle, JORGE to Saline Used and Epidural Catheter Placed (Wire reinforced ) Catheter Placed?: Catheter Placed Test Dose (Indicate Dose Given): 3ml 1.5% Lidocaine with 1:200K Epinephrine Given and Negative Test Dose Loss of Resistance Depth (cm): 5 Catheter depth at skin (cm): 11 Dressing: [place]orbav[place] Dressing Placed, Mastisol Used and Dressing reinforced with Tape Epidural Provider Bolus (Indicate Dose Given): Total Ropivacaine 0.1% with Fentanyl 2mcg/ml Given from pump. (ml) Dose:: 7 mL Additives (Indicate Dose Given ): None Infusion Medication: Medication Infusion Began Medication Infusion: Ropivacaine 0.1% with Fentanyl 2mcg/ml Maintenance Infusion Rate (ml/hour): 10 PCEA Bolus Dose (ml): 5 Block Level: Other Paresthesia: None Ultrasound: Used to john site Number of Attempts (See previous attempts in note section): 1 Procedure Tolerated: No Complications Procedure Outcome: Successful Procedure Comment:: States more comfortable after the 7 mL loading dose. educated on PCEA, narcan, etc. Performed By: Casey Tipton
--- NOTE | 2021-10-30 23:34 | W.PM.OBNL1 ---
Date of service: 10/30/21 Time of Service: 23:35 Informed Consent Informed Consent: Induction of Labor (Pitocin infusion) and Risk,Benefits,Alternatives Discussed Pelvic Exam Dilation: 6 Effacement (%): 100 station: -1 Cervix Position: mid Consistency: soft Vaginal Exam Presentation: Vertex Contractions Monitor Mode: External Contraction Frequency(min): every 2-3 Contraction Duration(sec): 60 Intensity: Moderate/Strong IUPC resting tone (mmHg): 20 IUPC peak pressure (mmHg): 60 IUPC [place] units: 150 Fetus A Monitor: External (US) Heart Rate Baseline: 160 Presentation: Vertex Categories: Category I FHR Rhythm: Regular Characteristics: Normal and Tachycardia Accelerations: 15 X 15 Decelerations: Variable Recurrence: Periodic Amniotic Membrane Status: Ruptured Amniotic Fluid: Clear Assessment Note: FHR returned to 160 baseline after IV fluid bolus Assessment and Plan Assessment and plan (1) Encounter for induction of labor: Status: Acute Assessment and plan: Dr. Kidd as notified of patient's status at 2245. She recommended increasing the pitocin rate and continuing to assess heart rate pattern and progress in labor. Ravindra plan to increase pitocin to 30 maintain and adequate contraction pattern with [place] units 200 or above. and re-examine the cervix after 2 hours. Objective Temp Pulse Resp BP Pulse Ox 97.5 F L 71 20 114/70 99 10/30/21 17:52 10/30/21 22:26 10/30/21 17:52 10/30/21 18:36 10/30/21 18:16 Laboratory Results WBC 8.10 10^3/uL (4.4-10.8) 10/28/21 09:08 RBC 4.67 10^6/uL (3.93-5.22) 10/28/21 09:08 Hgb 12.8 g/dL (11.2-15.7) 10/28/21 09:08 Hct 38.3 % (36.0-46.0) 10/28/21 09:08 MCV 82 fL (80-95) 10/28/21 09:08 MCH 27.4 pg (27.0-33.0) 10/28/21 09:08 MCHC 33.4 % (32.0-36.0) 10/28/21 09:08 RDW 13.5 % (11.7-14.6) 10/28/21 09:08 Plt Count 313 10^3/uL (130-400) 10/28/21 09:08 MPV 9.2 fL (8.0-11.0) 10/28/21 09:08 COVID-19 Source Nasal/Nares 10/28/21 09:05 SARS-CoV-2 (PCR) Negative (Negative) 10/28/21 09:05 Patient ABO/Rh O Positive 10/28/21 09:08 Antibody Screen NEGATIVE 10/28/21 09:08 Subjective Interval history since last seen: Dionna is comfortable with epidural in place. She is moving well and has tried several different positions. There was a period of time at 2200 when the baby was very active with heart rate 170s. SVE and cervix 6 cms/100%/-1. An IV bolus of 250cc was given. An IUPC placed after explanation of the procedures benefits to Dionna and her partner Shalom . Results Hemoglobin/Hematocrit: Hgb 12.8 g/dL (11.2-15.7) 10/28/21 09:08 Hct 38.3 % (36.0-46.0) 10/28/21 09:08 Procedure Procedures: IUPC Insertion (no descent of vertex) , indication for IUPC: no descent of vertex
[2021-10-31] VITALS (26 sets, daily range): BP systolic 97–120; BP diastolic 53–70; PULSE 70–105; RESP 16–20; TEMP 36.8–39.9; O2SAT 96–99
--- NOTE | 2021-10-31 00:47 | W.PM.OBNL1 ---
Date of service: 10/31/21 Time of Service: 00:47 Informed Consent Informed Consent: Induction of Labor (Pitocin infusion) and Risk,Benefits,Alternatives Discussed Pelvic Exam Dilation: 7 Effacement (%): 100 station: 0 Cervix Position: mid Consistency: soft Vaginal Exam Presentation: Vertex Contractions Monitor Mode: External Contraction Frequency(min): 2-3 Contraction Duration(sec): 60 Intensity: Moderate/Strong IUPC resting tone (mmHg): 10 IUPC peak pressure (mmHg): 70 IUPC [place] units: 160 Fetus A Monitor: External (US) Heart Rate Baseline: 158 Presentation: Vertex Variability: Moderate (6-25 BPM) Categories: Category I FHR Rhythm: Regular Characteristics: Normal Accelerations: 15 X 15 Decelerations: Variable Recurrence: Periodic Assessment and Plan Assessment and plan (1) Encounter for induction of labor: Status: Acute Assessment and plan: Will continue to assess contraction pattern. Turned onto right side and rest encouraged. Will reassess with cervical exam in 2 hours and continue to assess heart rate pattern. Possibility of delivery if lack of progress discussed with Amara at 2230. dr Forte is present at the center. Objective Temp Pulse Resp BP Pulse Ox 98.6 F 86 18 120/70 99 10/31/21 00:36 10/31/21 00:36 10/31/21 00:36 10/31/21 00:36 10/31/21 00:36 Laboratory Results WBC 8.10 10^3/uL (4.4-10.8) 10/28/21 09:08 RBC 4.67 10^6/uL (3.93-5.22) 10/28/21 09:08 Hgb 12.8 g/dL (11.2-15.7) 10/28/21 09:08 Hct 38.3 % (36.0-46.0) 10/28/21 09:08 MCV 82 fL (80-95) 10/28/21 09:08 MCH 27.4 pg (27.0-33.0) 10/28/21 09:08 MCHC 33.4 % (32.0-36.0) 10/28/21 09:08 RDW 13.5 % (11.7-14.6) 10/28/21 09:08 Plt Count 313 10^3/uL (130-400) 10/28/21 09:08 MPV 9.2 fL (8.0-11.0) 10/28/21 09:08 COVID-19 Source Nasal/Nares 10/28/21 09:05 SARS-CoV-2 (PCR) Negative (Negative) 10/28/21 09:05 Patient ABO/Rh O Positive 10/28/21 09:08 Antibody Screen NEGATIVE 10/28/21 09:08 Subjective Interval history since last seen: Pitocin at 24 mu/min. Dionna remains comfortable. Dr. Stanley spoke with Dionna and viewed the FHR tracing at 0010. SVE at 0040. cervix 7/100/0 with molding of the head noted. [place] units 160-200. Results Hemoglobin/Hematocrit: Hgb 12.8 g/dL (11.2-15.7) 10/28/21 09:08 Hct 38.3 % (36.0-46.0) 10/28/21 09:08
--- NOTE | 2021-10-31 03:11 | W.PM.OBNL1 ---
Date of service: 10/31/21 Time of Service: 03:12 Informed Consent Informed Consent: Induction of Labor (Pitocin infusion) and Risk,Benefits,Alternatives Discussed Pelvic Exam Dilation: 7 Effacement (%): 100 station: -1 Cervix Position: mid Consistency: soft Vaginal Exam Presentation: Cephalic Contractions Monitor Mode: Internal Contraction Frequency(min): every 3-4 Contraction Duration(sec): 60 Intensity: Moderate/Strong IUPC resting tone (mmHg): 10 IUPC peak pressure (mmHg): 80 IUPC [place] units: 160 Fetus A Monitor: External (US) Heart Rate Baseline: 155 Variability: Moderate (6-25 BPM) Categories: Category I FHR Rhythm: Regular Accelerations: 15 X 15 Decelerations: Variable Recurrence: Periodic Assessment and Plan Assessment and plan (1) Encounter for induction of labor: Status: Acute Assessment and plan: Pitocin discontinued and preparation of patient for at 0700. Will continue to assess heart rate pattern and rest was encouraged. (2) Failure to progress in labor: Status: Acute Assessment and plan: I consulted with Dr Kidd regarding lack of descent. Dr. Kidd spoke with Dionna regarding indications for and Dionna agrees. Objective Temp Pulse Resp BP Pulse Ox 98.6 F 73 18 97/55 L 99 10/31/21 00:36 10/31/21 02:30 10/31/21 02:30 10/31/21 02:30 10/31/21 02:30 Laboratory Results WBC 8.10 10^3/uL (4.4-10.8) 10/28/21 09:08 RBC 4.67 10^6/uL (3.93-5.22) 10/28/21 09:08 Hgb 12.8 g/dL (11.2-15.7) 10/28/21 09:08 Hct 38.3 % (36.0-46.0) 10/28/21 09:08 MCV 82 fL (80-95) 10/28/21 09:08 MCH 27.4 pg (27.0-33.0) 10/28/21 09:08 MCHC 33.4 % (32.0-36.0) 10/28/21 09:08 RDW 13.5 % (11.7-14.6) 10/28/21 09:08 Plt Count 313 10^3/uL (130-400) 10/28/21 09:08 MPV 9.2 fL (8.0-11.0) 10/28/21 09:08 COVID-19 Source Nasal/Nares 10/28/21 09:05 SARS-CoV-2 (PCR) Negative (Negative) 10/28/21 09:05 Patient ABO/Rh O Positive 10/28/21 09:08 Antibody Screen NEGATIVE 10/28/21 09:08 Subjective Interval history since last seen: Pitocin is at 30 mu/min. Dionna remains comfortable. She voided 800 cc at bedside commode at 0230. SVE performed. caput and molding noted but no descent or dilation. Results Hemoglobin/Hematocrit: Hgb 12.8 g/dL (11.2-15.7) 10/28/21 09:08 Hct 38.3 % (36.0-46.0) 10/28/21 09:08
--- NOTE | 2021-10-31 03:16 | OBCE_ITS ---
Date of service: 10/31/21 Time of Service: 03:17 Assessment and Plan Assessment and plan (1) Failure to progress in labor: Status: Acute Assessment and plan: Patient wants maximum dilatation 7 cm with adequate [place] units for 3 hours. Category 1 heart rate tracing. The plan is to discontinue the oxytocin infusion and to proceed with a primary delivery this morning. Patient is counseled regarding the risks of the procedure including the risk of bleeding infection damage to surrounding organs including bowel bladder ureters and possible injury to the infant during the delivery process. She has been counseled regarding the risk of hemorrhage and need for transfusion. (2) Encounter for induction of labor: Status: Acute History of Present Illness History of Present Illness Chief Complaint: Arrest of dilation Narrative: I was asked to consult by Lakeisha Thayer CNM regarding her patient Dionna Turk, a 26-year-old G1 female currently at 39-3/7 weeks estimated stational age who was undergone a induction of labor for gestational diabetes. Patient was admitted on the morning of 10/28/2021 and received oral misoprostol followed by a [place]errano balloon and oxytocin per protocol. I 10:00 in the evening on 10/30/2021 the patient is at a maximum dose of 20 milliunits/min of oxytocin with inadequate [place] units as determined by IUPC. I recommended increasing the dose of oxytocin to achieve adequate labor contractions. Approximately 2 and half hours later there is no evidence of cervical change or descent of the vertex. The [place] units were initially over 200 and have now decreased 250 with oxytocin infusion at 30 milliunits per minute. I spoke to the patient and recommended a delivery. heart rate tracing remains category 1 with contractions as described above. I recommended that we proceed with the delivery this morning. The oxytocin will be discontinued and she will be continuously monitored in the interim. 26 yo G1 @ 39 wks; IVF conception ? ? GDM requiring metformin for euglycemia ? ? GBS neg, Rh+, Rubella Immune, BMI 39 ? ? Category 1 tracing ? ? Increased risk SD & PPH d/t primipara with GDM and IOL ? ? Kidd score of 4 P: Admit to BC, begin cervical ripening procedures ? ? Labs ordered, misoprostel 50 mcg q4H per protocol ? ? Pt in agreement with plan of care, alternatives, R&B discussed, questions addressed ? ? Dr. Kidd consulting prn, anticipate (2) Encounter for induction of labor: Consults Consult date: 10/31/21 Requesting physician: Adrienne Kidd Review of Systems All systems reviewed & are unremarkable except as noted in HPI and below Constitutional Constitutional: Reports as per HPI (Patient reports fatigue. Aware of contractions with epidural in place) Respiratory Respiratory: Reports system reviewed and no additional complaints, except as documented Genitourinary Genitourinary: Reports system reviewed and no additional complaints, except as documented Psychiatric Comments: Patient is agreeable to having a delivery performed. [facility] All Active Problems (Updated 10/31/21 @ 03:13 by Lakeisha Ch CNM) Failure to progress in labor (Acute) Gestational diabetes mellitus (GDM) controlled on oral hypoglycemic drug (Acute) Encounter for induction of labor (Acute) Class 2 obesity with body mass index (BMI) of 37.0 to 37.9 in adult (Acute) conceived through in vitro fertilization (Acute) (Acute) Medical History (Updated 10/31/21 @ 03:13 by Lakeisha Ch CNM) Frequent UTI Gestational diabetes Gestational diabetes mellitus (GDM) requiring insulin H/O infertility Migraines Surgical History H/O unilateral salpingectomy Left tube in Summer 2020. Suspect hx infection. At [facility] Family History Father Kidney failure kidney transplant Paternal Cousin Diabetes Brother Asthma Brother Asthma Social History Smoking/Tobacco Use Status: Never Smoking risk assessment performed?: Yes Alcohol Intake: never Drug use: Never Substance use type: does not use Female Reproductive History Menstrual Age of Menarche: 10 History History 1 Para 0 Hx # Term Pregnancies 0 Multiple births 0 Hx # Pregnancies 0 Ectopic pregnancies 0 AB induced 0 Hx Number of Living Children 0 AB spontaneous 0 Exam Const General: no acute distress Nutritional Appearance: obese Orientation: alert, awake and oriented x3 Neck Neck: normal visual inspection Thyroid: thyroid normal Resp Effort & Inspection: normal respiratory effort Auscultation: clear to auscultation bilaterally Cardio Rate: regular rate Rhythm: regular rhythm General: No CVA tenderness Manual OB Exam: dilated 7, effaced 75% and station -1 Amniotic Fluid: clear Back/Spine/Pelvis Back: no CVA tenderness (Epidural catheter in place) Extrem General: normal to inspection Psych Appearance: grossly normal Mental Status: mental status grossly normal Speech and Movement: speech and movement normal Mood: congruent mood Affect: normal affect Results Last Vital Signs Temp 98.6 F 10/31/21 00:36 Pulse 73 10/31/21 02:30 Resp 18 10/31/21 02:30 BP 97/55 L 10/31/21 02:30 Pulse Ox 99 10/31/21 02:30 Labs Result diagrams: 10/28/21 09:08
[2021-10-31] MEDS: Lactated Ringers 1,000 ML 200 ML IV (06:23)
[2021-10-31] MEDS: AZITHROMYCIN 500 MG in Normal Saline 250 ML 250 MG IVPB (06:39)
[2021-10-31] MEDS: Sodium Citrate 30 ML CUP PO (07:41)
[2021-10-31] MEDS: Lactated Ringers 1,000 ML 30 ML IV (08:06)
[2021-10-31] MEDS: ceFAZolin 2 GM/50 ML BAG IVPB (08:29)
[2021-10-31] MEDS: Bupivacaine 0.25% Pres-Free 30 ML VIAL (09:35)
--- NOTE | 2021-10-31 11:50 | W.ANESPOSTOP ---
Postoperative Evaluation Date, Time and Location Date Performed: 10/31/21 Time Performed: 11:50 Patient Location: Obstetrics Vital Signs Most Recent Imported Vital Signs: Most Recent Vital Signs Temp Pulse Resp BP Pulse Ox 37.7 C H 71 16 109/65 99 10/31/21 06:08 10/31/21 09:50 10/31/21 09:50 10/31/21 09:50 10/31/21 06:14 Pain Score Most Recent Pain Score: Most Recent Pain Score Pain Level [Bilateral Abdomen] 1 10/31/21 09:50 Pain Level 0 10/28/21 09:30 Assessment Mental Status: Awake (Alert & Oriented to Patient Baseline) Airway and Respiratory Function: Patent airway with normal (patient baseline) respiratory exam Cardiovascular Function: Hemodynamically Stable Hydration Status: Adequately Hydrated Nausea & Vomiting: No Nausea or Vomiting Pain: Pt. Denies Any Pain Peripheral Nerve Block: Patient did not receive a nerve block
[2021-10-31] MEDS: Acetaminophen 325 MG TAB 650 MG PO ×2 (11:57→19:34)
[2021-10-31] MEDS: Ketorolac 30 MG/ML VIAL IVP ×2 (15:36→22:00)
[2021-10-31] MEDS: Lactated Ringers 1,000 ML 120 ML IV (16:17)
--- NOTE | 2021-10-31 20:46 | W.PM.OBCSECT ---
Date of service: 10/31/21 Time of Service: 20:46 Operative Note Operative Note Delivery Method: Unscheduled STAT: No and Primary NTSV>37 Weeks: Yes DATE OF PROCEDURE: 10/31/21 PRE-OP DIAGNOSES: arrest of cervical dilatation PROCEDURE: Low transverse delivery SURGEON: Adrienne Kidd Assisting Surgeon: Lakeisha Ch Estimated blood loss (mL): 300 Pathology: other (Cord bloods to lab) Complications: None Patient was transported to: floor Patient's condition: stable Indications: 26-year-old G1 female currently at 39-3/7 weeks estimated gestational age who was admitted on the morning of 10/28/2021 for induction of labor secondary to gestational diabetes. Pt received oral misoprostol followed by a Serrano balloon and oxytocin per protocol.?At 22:00 in the evening on 10/30/2021 she was experiencing inadequate contraction strength with a maximum infusion of 20 milliunits/min. The dose of oxytocin was increased to a maximum of 30mu/min to achieve adequate labor contractions.? Approximately 2 and half hours later there is no evidence of cervical change or descent of the vertex.? The [place] units were initially over 200 had decreased below 200 units with the oxytocin infusion at 30 milliunits per minute.? She had achieved a maximum cervical dilation of 7cm with vertex at -1 station. Findings: Viable male infant in the OA position with clear amniotic fluid normal uterus and fallopian tubes. Britt Saba. Procedure Description: Patient was taken to the operating room where her epidural catheter was removed and she was placed in the sitting position and spinal anesthesia was administered without difficulty. She was then placed in the dorsal supine position with a leftward tilt. SCDs and a Serrano catheter to gravity drainage were placed. A vaginal prep with Betadine was performed and the patient was prepped and draped in the usual sterile fashion. Surgical timeout was performed. After a adequate level of anesthesia was achieved a Pfannenstiel skin incision was made approximately 2 cm superior to the pubic symphysis using a scalpel and the underlying subcutaneous tissue dissected using Bovie electrocautery to the level of the rectus fascia. The rectus fascia was then nicked in the midline and the fascial incision extended laterally using curved Gilbert scissors and Bovie electrocautery. 2 Simón clamps were applied to the inferior rectus fascia and the rectus fascia was dissected off of the underlying rectus muscles using Bovie electrocautery and blunt technique. A similar technique was carried out on the superior rectus fascia. Rectus muscles were then in the midline and the peritoneum entered bluntly. The peritoneal incision was extended laterally using blunt technique. Scalpel was used to incise the lower uterine segment in a transverse fashion. The uterine incision was extended bluntly and the amniotic sac was ruptured with clear amniotic fluid noted. A single gloved hand was placed into the uterine cavity and the head was delivered to the uterine incision and the head was then successfully delivered with the assistance of a Kiwi vacuum traction and fundal pressure. Head was then followed by the trunk and extremities with the assistance of fundal pressure. The cord was doubly clamped and cut and the infant handed off to the waiting pediatric team. Cord blood was obtained and the placenta was extracted with a combination of fundal massage and gentle cord traction. The uterus was cleared of all clots and debris and the uterine incision reapproximated with the uterus and the abdomen using a running lock suture of 0 Vicryl followed by a second imbricating suture of 0 Vicryl. Uterine incision was noted be hemostatic. The paracolic gutters were cleared of all clots and debris. Uterine incision and the along with the bladder flap and the abdominal wall were all inspected and noted to be hemostatic. The rectus fascia was reapproximated with a running suture of 0 Vicryl. space within the subcutaneous tissue closed with a interrupted sutures of 2-0 Vicryl. The skin incision was reapproximated with a subcuticular closure of 4-0 Monocryl. A keloid scar in the midline of the incision was removed. It was not sent to pathology. Skin incision was then reinforced with Steri-Strips and a sterile dressing was applied along the length of the incision. The uterus was massaged for any remaining clots and debris's. The patient was transported to recovery area in stable condition. All sponge, lap, and needle counts correct x2. [place] Gestational Age in Weeks/Days: 39 Weeks and 3 Days Gender: Male weight: 6 lb 15.818 oz
[2021-10-31] MEDS: Lactated Ringers 1,000 ML 125 ML IV (20:51)
[2021-10-31] MEDS: Normal Saline Flush 10 ML SYR IVP (22:00)
[2021-11-01] VITALS: BP 102/62; PULSE 80; RESP 18; TEMP 37.1
[2021-11-01] MEDS: Normal Saline Flush 10 ML SYR IVP (04:04)
[2021-11-01] MEDS: Ketorolac 30 MG/ML VIAL IVP (04:04)
[2021-11-01 04:15] VITALS: BP 112/62; PULSE 75; RESP 18; TEMP 36.9
[2021-11-01 07:30] VITALS: BP 113/78; PULSE 80; RESP 14; TEMP 36.9
[2021-11-01 07:40] LABS: Abs Immature Grans 0.07 10^3/uL (0.0-0.06); Absolute Eosinophil Count 0.15 10^3/uL (0.0-0.7); Absolute Lymphocyte Count 1.63 10^3/uL (1.2-3.4); Absolute Monocyte Count 0.77 10^3/uL (0.1-0.8); Basophils % 0.4; Eosinophils % 1.1; HCT 30.5 % (36.0-46.0); HGB 9.8 g/dL (11.2-15.7); Immature Grans % 0.5; Lymphocytes % 11.6; MCH 27.1 pg (27.0-33.0); MCHC 32.1 % (32.0-36.0); MCV 84 fL (80-95); MPV 9.1 fL (8.0-11.0); Monocytes % 5.5; Neutrophils % 80.9; Platelet Count 236 10^3/uL (130-400); RBC 3.62 10^6/uL (3.93-5.22); RDW 13.5 % (11.7-14.6); RDW-SD 41.6 fL; WBC 14.06 10^3/uL (4.4-10.8)
[2021-11-01 07:41] LABS: Absolute Basophil Count 0.06 10^3/uL (0.0-0.2); Absolute Neutrophil Count 11.37 10^3/uL (1.2-6.7)
[2021-11-01] MEDS: Pantoprazole 40 MG TABCR PO (08:52)
[2021-11-01] MEDS: Acetaminophen 325 MG TAB 650 MG PO (08:55)
--- NOTE | 2021-11-01 12:46 | W.PM.OBPNV1 ---
Date of service: 11/01/21 Time of Service: 12:46 Assessment and Plan Assessment and plan (1) History of delivery: Status: Chronic Assessment and plan: Postop day #1 primary low transverse delivery for arrest of dilation. Patient successfully breast-feeding. Pain well controlled. She will be out of bed today her dressing will be removed and we will assess her ability to be discharged home tomorrow. Subjective Subjective Patient comments: Pain well controlled, Incisional pain, Tolerating diet and Flatus present Patient's Mood: Voided spontaneously when Serrano catheter discontinued last evening [place] baby status: Doing well, Nursing well, Rooming in and Strong Bonding Observed [place] feeding status: Exclusively breast feeding Exam Physical Exam Vital signs: Temp Pulse Resp BP Pulse Ox 98.4 F 80 14 113/78 97 11/01/21 07:30 11/01/21 07:30 11/01/21 07:30 11/01/21 07:30 10/31/21 18:00 Vital Signs Reviewed: Yes Constitutional Constitutional: no acute distress HEENT Exam HEENT Exam: Not Done Neck Exam Neck Exam: Normal Respiratory Exam Respiratory Exam: Normal Cardiovascular Exam Cardiovascular Exam: Normal Abdominal Exam Abdomen: Other (Incision covered with sterile dressing or Steri-Strips) Fundal Exam Fundus: Below Umbilicus and Firm Rectal Exam Rectal Exam: Not Done Extremities Exam Extremity Exam: Normal Back/Spine/Pelvis Exam Back Exam: Normal Skin Exam Skin Exam: Normal Neurological Exam Neurological Exam: Normal Psychiatric Exam Psychiatric Exam: Normal Results Hemoglobin/Hematocrit: Hgb 9.8 g/dL (11.2-15.7) L 11/01/21 07:15 Hct 30.5 % (36.0-46.0) L 11/01/21 07:15 Abnormal Lab Findings: Abnormal Labs 11/01/21 07:15 WBC 14.06 H RBC 3.62 L Hgb 9.8 L Hct 30.5 L Absolute Neutrophils 11.37 H
[2021-11-01] MEDS: oxyCODONE 5 mg/Acetaminophen 325 mg TAB PO ×2 (15:54→22:34)
[2021-11-01] MEDS: Ibuprofen 600 MG TAB PO ×2 (15:56→22:35)
[2021-11-01] MEDS: Phenylephrine 10 MG/ML VIAL (16:47)
[2021-11-01 17:00] VITALS: BP 116/76; RESP 20; TEMP 36.8
[2021-11-01 20:09] VITALS: BP 120/76; PULSE 81; RESP 20; TEMP 36.9
[2021-11-01 23:30] VITALS: BP 98/52; PULSE 69; RESP 18; TEMP 36.7; O2SAT 98
[2021-11-02 05:15] VITALS: BP 108/55; PULSE 72; RESP 16; TEMP 36.6
[2021-11-02] MEDS: Ibuprofen 600 MG TAB PO ×2 (05:25→10:47)
[2021-11-02] MEDS: oxyCODONE 5 mg/Acetaminophen 325 mg TAB PO ×2 (05:25→10:48)
--- NOTE | 2021-11-02 07:44 | DSE_ITS ---
Date of service: 11/02/21 Time of Service: 07:44 DS: Diagnosis Discharge Diagnosis (1) History of delivery: Status: Chronic Asessment and Plan: Postop day 2 after scheduled primary low transverse delivery at term (2) Gestational diabetes mellitus (GDM) controlled on oral hypoglycemic drug: Status: Acute Asessment and Plan: Treatment halted with admission for labor. Discharge Plan Disposition Patient Disposition: HOME Condition: Good Discharge Details Reason For Visit: GDM Requiring Medication,39 Wks Admit Date/Time: 10/28/21 07:37 Admit Provider: Alia Arrington Attending Provider: Alia Arrington Primary Care Provider: Lianet Davies Hospital Course Hospital Course: 26-year-old G1 female currently at 39-3/7 weeks estimated gestational age who was admitted on the morning of 10/28/2021 for induction of labor secondary to gestational diabetes. Pt? received oral misoprostol followed by a Serrano balloon and oxytocin per protocol.?At 22:00 in the evening on 10/30/2021 she was experiencing inadequate contraction strength with a maximum infusion of 20 milliunits/min. The dose of oxytocin was increased to a maximum of 30mu/min to achieve adequate labor contractions.? Approximately 2 and half hours later there is no evidence of cervical change or descent of the vertex.? The [place] units were initially over 200 had decreased below 200 units with the oxytocin infusion at 30 milliunits per minute.? She had achieved a maximum cervical dilation of 7cm with vertex at -1 station. Postop course was uncomplicated she was discharged to home on postop day 2 successfully breast-feeding. Postop pain was controlled with Tylenol and ibuprofen. [facility] for incision check in 6 weeks with the CNM service. Discharge pain medications will be prescription for ibuprofen 600 mg every 6 hours and acetaminophen 325 mg every 4-6 hours as needed. Metformin has been discontinued as has glucometer testing Home Meds and New Rx's Prescriptions: No Action pantoprazole [Protonix] 40 mg tablet,delayed release (DR/EC) 40 mg PO DAILY Qty: 30 6RF metformin 500 mg tablet 500 mg PO BID Qty: 60 0RF (DME) blood-glucose meter [FreeStyle Lite Meter] Kit See Rx Instructions .ROUTE .MEDSUPPLY Qty: 1 0RF Rx Instructions: As directed (DME) FreeStyle Lite Strips Strip See Rx Instructions .ROUTE .MEDSUPPLY Qty: 100 3RF Rx Instructions: testing QID (DME) lancets [FreeStyle Lancets] 28 gauge misc See Rx Instructions .ROUTE .MEDSUPPLY Qty: 100 3RF Rx Instructions: Testing QID WesTab Plus 27 mg iron- 1 mg tablet 1 tab PO DAILY Label Comments: TAKE 1 TABLET BY MOUTH DAILY WITH FOOD aspirin [Adult Low Dose Aspirin] 81 mg tablet,delayed release (DR/EC) See Rx Instructions .ROUTE .COMPLEX Rx Instructions: 1 tablet every day alternating with 2 tablets (162 mg) every other day Discharge Instructions Additional Instructions: You may stop your glucose testing. You may stop your metformin. Have an appointment with Dr. Kidd in approximately 2 weeks to inspect your incision Stand Alone Forms: BC Instructions, BC Discharge Instruc Activity:: Activity as Tolerated Equipment/Supplies:: No Equipment Needed Diet:: As Tolerated Discharge Orders Discharge Orders: Discharge Order (Routine); Ordered 11/02/21 Ordered By: Adrienne Kidd OB:DS Summary Summary Episiotomy Description: None Laceration Extension: N/A Contraception Discussed Contraception Discussed: No, [place] Gender-Baby A: Male weight: 6 lb 15.818 oz Status at Discharge Functional status at discharge: independent ambulation Overall status at discharge: patient is progressing back to baseline Mental Status: mental status grossly normal Speech and Movement: speech and movement normal Mood: congruent mood Affect: normal affect Exam Physical Exam Vital signs: Temp Pulse Resp BP Pulse Ox 97.9 F 72 16 108/55 L 98 11/02/21 05:15 11/02/21 05:15 11/02/21 05:15 11/02/21 05:15 11/01/21 23:30 Vital Signs Reviewed: Yes Constitutional Constitutional: no acute distress HEENT Exam HEENT Exam: Normal Neck Exam Neck Exam: Normal Respiratory Exam Respiratory Exam: Normal Cardiovascular Exam Cardiovascular Exam: Normal Abdominal Exam Comments: Incision is well approximated Steri-Strips in place no induration or erythema Fundal Exam Fundus: Below Umbilicus Rectal Exam Rectal Exam: Not Done Extremities Exam Extremity Exam: Normal Back/Spine/Pelvis Exam Back Exam: Normal Skin Exam Skin Exam: Normal Neurological Exam Neurological Exam: Normal Psychiatric Exam Psychiatric Exam: Normal [facility] All Active Problems (Updated 10/31/21 @ 03:13 by Lakeisha Ch CNM) History of delivery (Chronic) 10/30/2021. Arrest of dilatation. Induction of labor at term for history of gestational diabetes Failure to progress in labor (Acute) Gestational diabetes mellitus (GDM) controlled on oral hypoglycemic drug (Acute) Encounter for induction of labor (Acute) Class 2 obesity with body mass index (BMI) of 37.0 to 37.9 in adult (Acute) conceived through in vitro fertilization (Acute) (Acute) Medical History (Updated 10/31/21 @ 03:13 by Lakeisha Ch CNM) Frequent UTI Gestational diabetes Gestational diabetes mellitus (GDM) requiring insulin H/O infertility Migraines Surgical History (Updated 11/01/21 @ 12:51 by Adrienne Kidd MD) H/O unilateral salpingectomy Left tube in Summer 2020. Suspect hx infection. [facility] Family History Father Kidney failure kidney transplant Paternal Cousin Diabetes Brother Asthma Brother Asthma Social History Smoking/Tobacco Use Status: Never Smoking risk assessment performed?: Yes Alcohol Intake: never Drug use: Never Substance use type: does not use Female Reproductive History Menstrual Age of Menarche: 10 History History 1 Para 0 Hx # Term Pregnancies 0 Multiple births 0 Hx # Pregnancies 0 Ectopic pregnancies 0 AB induced 0 Hx Number of Living Children 0 AB spontaneous 0 DS: Data Vitals/I&O Vitals and I&O: Vital Signs Temperature 97.9 F 11/02/21 05:15 Pulse 72 11/02/21 05:15 Pulse Rhythm Regular 11/02/21 05:15 Respiratory Rate 16 11/02/21 05:15 Blood Pressure 108/55 L 11/02/21 05:15 Blood Pressure Mean 72 11/02/21 05:15 Pulse Oximetry 98 11/01/21 23:30 Oxygen Delivery Method Room Air 10/28/21 08:37 Oxygen Flow Rate 0 10/28/21 08:37 Pain Level 4 11/02/21 05:15 Comment 10/30/21 17:52 Intake & Output 11/01/21 11/01/21 11/02/21 11:59 23:59 11:59 Intake Total 550 / 850 300 / 850 Output Total 500 / 500 Balance 50 / 350 300 / 350 Intake: Oral 550 / 850 300 / 850 Output: Urine 500 / 500 Other: Urine Color Yellow
[2021-11-02 08:15] VITALS: BP 122/75; PULSE 71; RESP 14; TEMP 36.9
== END 2021-11-02 12:20 | disposition home or self-care (01) | DRG 787 ==
PROVIDERS: Obstetrics & Gynecology Gynecology; Admitting Provider Advanced Practice Midwife; PCP Internal Medicine; Visit Provider Advanced Practice Midwife
PROC: 10D00Z1 Extraction of Products of Conception, Low, Open Approach (ICD-10-PCS; CPT 59514; principal; 2021-10-31 07:30)
DX: O24.425 Gestational diabetes mellitus in childbirth, controlled by oral hypoglycemic drugs; Z37.0 Single live birth; O99.214 Obesity complicating childbirth; E66.9 Obesity, unspecified; O62.0 Primary inadequate contractions; O61.1 Failed instrumental induction of labor; Z3A.39 39 weeks gestation of pregnancy; O99.354 Diseases of the nervous system complicating childbirth; G43.909 Migraine, unspecified, not intractable, without status migrainosus
CPT/HCPCS: 36415; 85027; 86850; 86900; 86901; 87635; 85025; J0456; J0690; J1885; J2370; J2405; J3010

== ENCOUNTER 2021-11-05 05:24 | Emergency (ER) | payer OTHER, SELFPAY ==
[2021-11-05] VITALS (7 sets, daily range): BP systolic 112–128; BP diastolic 60–80; PULSE 49–70; RESP 12–24; TEMP 36.5–37.2; O2SAT 97–98
--- NOTE | 2021-11-05 05:30 | RT.EKG_ITS ---
APPROVED REPORT Exam: Resting ECG Reason for Exam: dyspnea Patient Location: E HR:56 bpm ECG Measurements Heart Rate 56 AXIS MO 139 P 35 QRSd 83 QRS 56 QT 423 T 45 QTc 407 Conclusion Sinus bradycardia...rate< 60
--- NOTE | 2021-11-05 05:42 | ED.GENADUL_ITS ---
Discharge Plan Disposition Patient Disposition: STILL A PATIENT Condition: Stable Discharge Details Chief Complaint: RespSymp Clinical Impression: Shortness of breath Primary Care Provider: Lianet Davies ED Provider: Anthony Rome Home Meds and New Rx's Prescriptions: No Action pantoprazole [Protonix] 40 mg tablet,delayed release (DR/EC) 40 mg PO DAILY Qty: 30 6RF metformin 500 mg tablet 500 mg PO BID Qty: 60 0RF (DME) blood-glucose meter [FreeStyle Lite Meter] Kit See Rx Instructions .ROUTE .MEDSUPPLY Qty: 1 0RF Rx Instructions: As directed (DME) FreeStyle Lite Strips Strip See Rx Instructions .ROUTE .MEDSUPPLY Qty: 100 3RF Rx Instructions: testing QID (DME) lancets [FreeStyle Lancets] 28 gauge misc See Rx Instructions .ROUTE .MEDSUPPLY Qty: 100 3RF Rx Instructions: Testing QID ibuprofen 600 mg tablet 600 mg PO Q6H PRN (Reason: pain) Qty: 30 2RF WesTab Plus 27 mg iron- 1 mg tablet 1 tab PO DAILY Label Comments: TAKE 1 TABLET BY MOUTH DAILY WITH FOOD aspirin [Adult Low Dose Aspirin] 81 mg tablet,delayed release (DR/EC) See Rx Instructions .ROUTE .COMPLEX Rx Instructions: 1 tablet every day alternating with 2 tablets (162 mg) every other day Medical Decision Making 26 yo female who underwent uncomplicated c section 10/31 comes in with shortness of breath that woke her from sleep aroud 10pm last night. She states she was feeling well until the symptoms started. Also has some anterior chest pressure. She denies radiation of pain, diaphoresis, increased symptoms with exertion. She states laying flat does make her dyspnea mildly worse. She denies fevers or chills. She arrives speaking in full sentences in no distress. She has clear lungs, no murmurs, no jvd or calf tenderness. Unclear etiology for her symptoms, given recent surgery she is wells score 1.5, will send d dimer. Her heart score is 2, symptoms seem atypical for acs, will send troponin. No tearing back pain so doubt dissection. No jvd, leg swelling or crackles so doubt chf. pt stable states she feels mildly better, labs unremarkable other than d dimer over 3000. Discussed with pt will obtain cta to further evaluate pt signed out to oncoming provider pending cta results and reeval Differential Diagnosis Differential Diagnosis: pe, pericarditis, anxiety Medical Records Medical records reviewed: Yes I reviewed the patient's medical records. Imaging Data Radiologic Study: Attestation: I personally reviewed and interpreted this imaging study as follows: Imaging: X-Ray My impression: no acute findings Lab Data Lab results reviewed: Yes I reviewed the patient's lab results. ECG Data Attestation: I personally reviewed and interpreted this ECG (s) as follows: Prior ECG tracings: not available for review Interpretation: sinus bradycardia, rate of 56, no acute st t wave ischemic findings HPI General Mode of arrival: ambulatory . Date/Time Provider Initiated Documentation: 11/05/21 05:26 . Limitations to Documentation: no limitations . Information obtained by: patient . History of Present Illness 26 year old F presents to the emergency department with the chief complaint of shortness of breath, described as moderate, Patient started experiencing this hour(s) (8) and it has been constant. No relieving factors improve symptom(s), Other factors that worsen symptoms (laying flat) . Patient did receive the following treatments prior to arrival, none Related Data Home Medications Medication Instructions Recorded Confirmed pantoprazole 40 mg tablet,delayed 40 mg PO DAILY #30 tabs 09/01/21 10/28/21 release (Protonix) blood sugar diagnostic (FreeStyle #100 ea 09/09/21 10/28/21 Lite Strips) blood-glucose meter (FreeStyle #1 ea 09/09/21 10/28/21 Lite Meter kit) lancets 28 gauge (FreeStyle #100 ea 09/09/21 10/28/21 Lancets) metformin 500 mg tablet 500 mg PO BID #60 tabs 10/06/21 10/28/21 aspirin 81 mg tablet,delayed See Rx Instructions .Route .COMPLEX 10/28/21 10/28/21 release (Adult Low Dose Aspirin) vitamin with calcium 1 tab PO DAILY 10/28/21 10/28/21 no.72-iron 27 mg-folic acid 1 mg tablet (WesTab Plus) ibuprofen 600 mg tablet 600 mg PO Q6H PRN pain #30 tabs 11/02/21 11/05/21 Previous Rx's Medication Instructions Recorded pantoprazole 40 mg tablet,delayed 40 mg PO DAILY #30 tabs 09/01/21 release (Protonix) blood sugar diagnostic (FreeStyle #100 ea 09/09/21 Lite Strips) blood-glucose meter (FreeStyle #1 ea 09/09/21 Lite Meter kit) lancets 28 gauge (FreeStyle #100 ea 09/09/21 Lancets) metformin 500 mg tablet 500 mg PO BID #60 tabs 10/06/21 ibuprofen 600 mg tablet 600 mg PO Q6H PRN pain #30 tabs 11/02/21 Allergies Allergy/AdvReac Type Severity Reaction Status Date / Time Sulfa (Sulfonamide Allergy Intermediate Skin Rash Verified 11/05/21 05:35 Antibiotics) nickel Allergy Mild Verified 11/05/21 05:35 General Stated Complaint: RespSymp ERASMO: 3 Review of Systems All systems reviewed & are unremarkable except as noted in HPI and below Constitutional Constitutional: Denies chills, Denies fever(s) and Denies weakness Respiratory Respiratory: Denies cough Gastrointestinal Gastrointestinal: Denies abdominal pain, Denies nausea and Denies vomiting Musculoskeletal Musculoskeletal: Denies joint swelling Integumentary/Breasts Skin/Breast: Denies rash Neurologic Neurologic: Denies weakness [facility] All Active Problems (Updated 11/05/21 @ 06:59 by Anthony Rome MD) Shortness of breath (Acute) History of delivery (Chronic) 10/30/2021. Arrest of dilatation. Induction of labor at term for history of gestational diabetes Gestational diabetes mellitus (GDM) controlled on oral hypoglycemic drug (Acute) Class 2 obesity with body mass index (BMI) of 37.0 to 37.9 in adult (Acute) conceived through in vitro fertilization (Acute) (Acute) Medical History (Updated 11/05/21 @ 06:59 by Anthony Rome MD) Frequent UTI Gestational diabetes Gestational diabetes mellitus (GDM) requiring insulin H/O infertility Migraines Surgical History (Updated 11/01/21 @ 12:51 by Adrienne Kidd MD) H/O unilateral salpingectomy Left tube in Summer 2020. Suspect hx infection. At [facility] Family History Father Kidney failure kidney transplant Paternal Cousin Diabetes Brother Asthma Brother Asthma Social History Smoking/Tobacco Use Status: Never Smoking risk assessment performed?: Yes Alcohol Intake: never Drug use: Never Substance use type: does not use Female Reproductive History Menstrual Age of Menarche: 10 History History 1 Para 0 Hx # Term Pregnancies 0 Multiple births 0 Hx # Pregnancies 0 Ectopic pregnancies 0 AB induced 0 Hx Number of Living Children 0 AB spontaneous 0 Exam Const General: no acute distress Orientation: alert HENMT Head: normal to inspection Ears: external ears normal General nose exam: external nose normal Mouth: moist mucous membranes Eyes General: appearance normal, both eyes and all related structures Neck Neck: normal visual inspection Resp Effort & Inspection: normal respiratory effort and able to speak in complete sentences Cardio Rate: regular rate Skin General skin exam: no rashes or lesions noted Neuro General: patient alert and patient oriented x3 Extrem General: normal to inspection Psych Mental Status: mental status grossly normal Course Vital Signs Vital signs: Vital Signs Temperature 36.5 C 11/05/21 05:31 Pulse 56 L 11/05/21 05:31 Respiratory Rate 12 11/05/21 05:31 Blood Pressure 112/60 11/05/21 05:31 Pulse Oximetry 98 11/05/21 05:31 Temperature 36.5 C 11/05/21 05:31 Temperature Source Skin 11/05/21 05:31 Pulse 56 L 11/05/21 05:31 Respiratory Rate 12 11/05/21 05:31 Respiratory Effort 11/05/21 05:37 Respiratory Depth Normal 11/05/21 05:37 Blood Pressure 112/60 11/05/21 05:31 Blood Pressure Position Sitting 11/05/21 05:31 Pulse Oximetry 98 11/05/21 05:31 Oxygen Delivery Method Room Air 11/05/21 05:31 Oxygen Flow Rate 0 11/05/21 05:31 Pain Level 0 11/05/21 05:31
--- NOTE | 2021-11-05 05:45 | DI.RAD_ITS ---
Exam(s) XR PORTABLE CHEST AP EXAM: XR PORTABLE CHEST AP CLINICAL HISTORY: shortness of breath. TECHNIQUE: 2D digital imaging was performed. COMPARISON: No exams were available for comparison FINDINGS: Single AP portable view. Heart size is upper normal. The mediastinum is not widened. Lungs are clear. No infiltrates nor obvious pleural effusions. IMPRESSION: No acute pulmonary findings on this single AP portable view of the chest. DATA REPOSITORY: RADIATION DOSE DELIVERED: All CT scans at this facility use at least one of these dose optimization techniques: automated exposure control; mA and/or kV adjustment per patient size (includes targeted e xams where dose is matched to clinical indication); or iterative reconstruction.
[2021-11-05 06:02] LABS: Abs Immature Grans 0.03 10^3/uL (0.0-0.06); Absolute Basophil Count 0.04 10^3/uL (0.0-0.2); Absolute Eosinophil Count 0.34 10^3/uL (0.0-0.7); Absolute Lymphocyte Count 2.09 10^3/uL (1.2-3.4); Absolute Neutrophil Count 5.77 10^3/uL (1.2-6.7); Basophils % 0.5; Eosinophils % 3.8; HCT 32.9 % (36.0-46.0); HGB 10.7 g/dL (11.2-15.7); Immature Grans % 0.3; Lymphocytes % 23.6; MCH 27.3 pg (27.0-33.0); MCHC 32.5 % (32.0-36.0); MCV 84 fL (80-95); MPV 8.9 fL (8.0-11.0); Monocytes % 6.8; Platelet Count 304 10^3/uL (130-400); RBC 3.92 10^6/uL (3.93-5.22); RDW 13.1 % (11.7-14.6); RDW-SD 40.1 fL; WBC 8.87 10^3/uL (4.4-10.8)
[2021-11-05 06:21] LABS: ALT 29 U/L (14-59); AST 22 U/L (15-37); Albumin 2.6 g/dL (3.4-5.0); Alkaline Phosphatase 123 U/L (46-116); Anion Gap 7.9 mmol/L (3-11); BUN 15 mg/dL (7-18); Bilirubin, Total 0.4 mg/dL (0.2-1.0); CO2 27.1 mmol/L (21.0-32.0); CREATININE 0.7 mg/dL (0.55-1.02); Calcium 8.7 mg/dL (8.5-10.1); Chloride 106 mmol/L (98-107); Glucose 87 mg/dL (74-106); Magnesium 1.8 mg/dL (1.8-2.4); Potassium 3.8 mmol/L (3.5-5.1); Sodium 141 mmol/L (136-145); Total Protein 7.1 g/dL (6.4-8.2); Troponin I < 50 ng/L (<or=60)
[2021-11-05 06:49] LABS: D-Dimer 3438 ng/mlFEU (<500)
--- NOTE | 2021-11-05 07:43 | DI.VRAD_ITS ---
PROCEDURE INFORMATION: Exam: XR Chest Exam date and time: 11/05/2021 5:50 AM Age: 26 years old Clinical indication: Shortness of breath TECHNIQUE: Imaging protocol: Radiologic exam of the chest. Views: 1 view. COMPARISON: No relevant prior studies available. FINDINGS: Tubes, catheters and devices: Monitoring leads project over the chest. Lungs: No pneumonia. No pulmonary edema. Pleural spaces: No pleural effusion. No pneumothorax. Heart/Mediastinum: Cardiac size not enlarged. Central vessels unremarkable. Vasculature: Aorta normal caliber. Bones/joints: Visualized osseous structures are unremarkable. IMPRESSION: No acute intrathoracic process Dictated and Authenticated by: Mohna Sanderson MD. Ordering:CATE Cruz MD
--- NOTE | 2021-11-05 07:48 | DI.CT_ITS ---
Exam(s) CT CHEST PE CTA EXAM: CT CHEST PE CTA CLINICAL HISTORY: recent surgery, elevated d dimer, dyspnea. TECHNIQUE: Imaging Protocol: CT angiography of the chest was performed using pulmonary embolus carmen col. Multi planar reconstructions were performed. CONTRAST MATERIAL: Intravenous: Omnipaque 350 Contrast volume: 100 cc COMPARISON: No exams were available for comparison FINDINGS: CHEST: PULMONARY ARTERIES: There are no intraluminal filling defects to suggest acute pulmonary emboli. LUNGS: There are minimal increased markings in left lung base-posterior basal segment left lower lobe . However, there are no confluent infiltrates nor evidence of pulmonary infarction.. There is a smal l right pleural effusion and even smaller amount of left pleural fluid. No significant focal finding s in trachea and mainstem bronchi. MEDIASTINUM: There is no hilar nor mediastinal adenopathy. CARDIAC: Heart size is upper normal. There is no pericardial effusion.Caliber of the thoracic aorta is within normal limits. No evidence of aortic dissection. There is no significant shift of the inte rventricular septum. PARTIALLY VISUALIZED UPPERMOST ABDOMEN: No adrenal masses. OSSEOUS: No significant osseous lesions.. IMPRESSION: 1. No evidence of acute pulmonary emboli. No evidence of pulmonary infarction. 2. Mild increased markings in left lower lobe but no confluent infiltrates. 3. Small pleural effusions, right larger than left. RADIATION DOSE DELIVERED: 508.46mGy.cm Total DLP DATA REPOSITORY: All CT scans at this facility are submitted to the National Radiology Data Registry (NRDR) Dose Index Registry (DIR) with the [employer] ([employer]). RADIATION OPTIMIZATION: All CT scans at this facility use at least one of these dose optimization te chniques: automated exposure control; mA and/or kV adjustment per patient size (includes targeted exa ms where dose is matched to clinical indication); or iterative reconstruction.
[2021-11-05] MEDS: Omnipaque 350 MG/ML 100 ML BTL 82 ML IJ (07:51)
--- NOTE | 2021-11-05 08:01 | DI.VRAD_ITS ---
PROCEDURE INFORMATION: Exam: CTA Chest With Contrast Exam date and time: 11/05/2021 7:41 AM Age: 26 years old Clinical indication: Patient HX: Recent surgery, elevated d-dimer, dyspnea TECHNIQUE: Imaging protocol: Computed tomographic angiography of the chest with contrast. 3D rendering (Not supervised by radiologist): MIP and/or 3D reconstructed images were created by the technologist. Radiation optimization: All CT scans at this facility use at least one of these dose optimization techniques: automated exposure control; mA and/or kV adjustment per patient size (includes targeted exams where dose is matched to clinical indication); or iterative reconstruction. Contrast material: OMNI-PAQUE 350; Contrast volume: 82 ml; Contrast route: INTRAVENOUS (IV); COMPARISON: XR PORTABLE CHEST AP 11/05/2021 5:50 AM FINDINGS: Pulmonary arteries: No evidence of acute pulmonary embolism. Aorta: Aorta normal caliber without aneurysm, dissection or disruption. Lungs: No consolidative pneumonia or overt pulmonary edema. Minimal dependent basilar atelectasis. Pleural spaces: Small bilateral pleural effusions, right greater than left. No pneumothorax. Heart: Cardiac size upper limits normal. No pericardial effusion. No right heart strain. No significant coronary artery calcifications. Lymph nodes: No mediastinal or hilar lymphadenopathy. Liver: Calcified granulomata. Hepatomegaly, partially visualized. No discrete mass. Spleen: Splenomegaly, partially visualized. Bones/joints: Unremarkable. No acute fracture. Soft tissues: Unremarkable. IMPRESSION: 1. No evidence of acute pulmonary embolism. 2. Cardiac size upper limits normal. No pericardial effusion. No right heart strain. No significant coronary artery calcifications. 3. Aorta normal caliber without aneurysm, dissection or disruption. 4. No consolidative pneumonia or overt pulmonary edema. Minimal dependent basilar atelectasis. 5. Small bilateral pleural effusions, right greater than left. No pneumothorax. Dictated and Authenticated by: Mohan Sanderson MD. Ordering:CATE Cruz MD
--- NOTE | 2021-11-05 08:15 | W.EDPROG ---
Date of service: 11/05/21 Time of Service: 08:15 Medical Decision Making Patient resting comfortably asymptomatic at this time labs and imaging unremarkable. Patient has no chest pain or shortness of breath no evidence of active infection PE pneumonia or cardiac process. Home care instructions and return precautions given. Patient has follow-up appointment on the seventh. Sign Out Sign Out Data: Sign Out Comment: c section 5 days ago, shortness of breath since last night, stable vitals, d dimer elevated, pending cta Last updated by Anthony Rome MD at 11/05/21 07:00 Discharge Plan Disposition Patient Disposition: HOME Condition: Improving Discharge Details Clinical Impression: Shortness of breath Primary Care Provider: Lianet Davies ED Provider: Alverto Pyel Home Meds and New Rx's Prescriptions: No Action pantoprazole [Protonix] 40 mg tablet,delayed release (DR/EC) 40 mg PO DAILY Qty: 30 6RF metformin 500 mg tablet 500 mg PO BID Qty: 60 0RF (DME) blood-glucose meter [FreeStyle Lite Meter] Kit See Rx Instructions .ROUTE .MEDSUPPLY Qty: 1 0RF Rx Instructions: As directed (DME) FreeStyle Lite Strips Strip See Rx Instructions .ROUTE .MEDSUPPLY Qty: 100 3RF Rx Instructions: testing QID (DME) lancets [FreeStyle Lancets] 28 gauge misc See Rx Instructions .ROUTE .MEDSUPPLY Qty: 100 3RF Rx Instructions: Testing QID ibuprofen 600 mg tablet 600 mg PO Q6H PRN (Reason: pain) Qty: 30 2RF WesTab Plus 27 mg iron- 1 mg tablet 1 tab PO DAILY Label Comments: TAKE 1 TABLET BY MOUTH DAILY WITH FOOD aspirin [Adult Low Dose Aspirin] 81 mg tablet,delayed release (DR/EC) See Rx Instructions .ROUTE .COMPLEX Rx Instructions: 1 tablet every day alternating with 2 tablets (162 mg) every other day Discharge Instructions Instructions: Dyspnea (ED) Additional Instructions: Please follow-up with your primary care physician. Please return to the emergency department for any worsening symptoms.
== END 2021-11-05 08:26 | disposition home or self-care (01) ==
PROVIDERS: Emergency Medicine; Emergency Provider Emergency Medicine; PCP Internal Medicine
DX: R06.00 Dyspnea, unspecified (principal); R06.02 Shortness of breath
CPT/HCPCS: 71275; 80053; 93005; 99285; 71045; 83735; 84484; 85025; 85379; 93010; 99284; J3490

== ENCOUNTER 2021-12-23 02:34 | Outpatient (CLI) | payer OTHER, SELFPAY ==
[2021-12-23 10:41] LABS: GTT Comment See Comments
== END 2021-12-23 02:35 | disposition home or self-care (01) ==
LOC: LBO 02:34
PROVIDERS: Obstetrics & Gynecology; PCP Internal Medicine; Visit Provider Obstetrics & Gynecology Gynecology
DX: O24.415 Gestational diabetes mellitus in pregnancy, controlled by oral hypoglycemic drugs (principal)
CPT/HCPCS: 36415; 82951

== ENCOUNTER 2025-01-16 01:37 | Outpatient (CLI) | payer OTHER, SELFPAY ==
[2025-01-16 12:15] LABS: ALT 48 U/L (14-59); AST 29 U/L (15-37); Albumin 3.9 g/dL (3.4-5.0); Alkaline Phosphatase 95 U/L (46-116); Anion Gap 9.3 mmol/L (3-11); BUN 12 mg/dL (7-18); Bilirubin, Total 0.8 mg/dL (0.2-1.0); CO2 27.7 mmol/L (21.0-32.0); Calcium 9.2 mg/dL (8.5-10.1); Chloride 100 mmol/L (98-107); Glucose 69 mg/dL (74-106); Potassium 3.9 mmol/L (3.5-5.1); Sodium 137 mmol/L (136-145); TSH (W/Ref FT4) 1.46 uIU/mL (0.36-3.74); Total Protein 8.8 g/dL (6.4-8.2)
[2025-01-16 18:20] LABS: FSH 7.4 mIU/mL (See Note)
[2025-01-16 18:23] LABS: LH 8.9 mIU/mL (See Note)
== END 2025-01-16 01:38 | disposition home or self-care (01) ==
LOC: LBO 01:37
PROVIDERS: PCP Internal Medicine; Visit Provider Obstetrics & Gynecology
DX: N92.1 Excessive and frequent menstruation with irregular cycle (principal); N97.0 Female infertility associated with anovulation
CPT/HCPCS: 36415; 80053; 83498; 83001; 83002; 84146; 84443